=== PATIENT | male | born 1950 | race Caucasian/White ===

== ENCOUNTER 2017-07-27 12:32 | Inpatient (IN) | payer MEDICARE, OTHER ==
[2017-07-27 13:19] LABS: Hematocrit 39 % (42-52); Hemoglobin 13.1 g/dl (14.0-18.0); Mean Corpuscular HGB Conc 34 g/dl (31-36); Mean Corpuscular Hemoglobin 29 pg (27-31); Mean Corpuscular Volume 87 fL (80-94); Mean Platelet Volume 8 um3 (7.4-10.4); Red Blood Count 4.52 10^6/ul (4.0-5.4); Red Cell Distribution Width 15 % (10.5-15); White Blood Count 7.9 10^3/ul (3.5-10.8)
[2017-07-27 13:34] LABS: Albumin 3.6 g/dL (3.2-5.2); BUN/Creatinine Ratio 19.9 (8-20); Calcium 8.7 mg/dL (8.6-10.3); EGFR African American 66.8 (>60); Globulin 2.7 g/dL (2-4); Magnesium 1.7 mg/dL (1.9-2.7); Potassium 4.5 mmol/L (3.5-5.0); Total Bilirubin 0.5 mg/dL (0.2-1.0); Total Protein 6.3 g/dL (6.4-8.9)
--- NOTE | 2017-07-27 14:01 | RAD ---
INDICATION: Shortness of breath. Palpitations. Hypertension. COMPARISON: October 15, [address] TECHNIQUE: Dual energy PA and routine lateral views of the chest were obtained. November 29, 2012 chest radiograph. REPORT: Mild prominence of the interstitial markings with mild increase over the 2013 exam. No alveolar infiltrate, focal pulmonary lesion, pleural effusion, pneumothorax. Cardiomegaly increased over the prior exam. Unremarkable central pulmonary vasculature and mediastinal contours. No suspicious osseous lesions evident. IMPRESSION: 1. Mild prominence of the interstitial markings with progression over the 2013 exam. No acute pulmonary process evident. 2. Cardiomegaly without compelling evidence for pulmonary edema.
[2017-07-27 14:08] LABS: TSH (Thyroid Stimulating Horm) 3.51 mcIU/mL (0.34-5.60)
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
[2017-07-27] MEDS ORDERED: Albuterol HFA INHALER* 8 gm MDI INH PRN (16:45)
[2017-07-27] MEDS ORDERED: Albuterol 2.5 MG/3 ML NEB.SOL* (0.083%) INH PRN (16:45)
[2017-07-27] MEDS ORDERED: Gabapentin CAP(*) 300 MG PO PRN (16:45)
[2017-07-27] MEDS ORDERED: Dextrose 50% Syringe 50 ML* 25 GM/50 ML SYRINGE IV PUSH PRN (16:51)
[2017-07-27] MEDS: Heparin VIAL(*) 5000 UNITS/ML VIAL (FIVE THOUSAND) SUBCUT SCH (22:17)
--- NOTE | 2017-07-27 22:50 | HP ---
CC: Dr. Eulalio Browne* HISTORY AND PHYSICAL: DATE OF ADMISSION: 07/27/2017. CHIEF COMPLAINT: Swelling in his lower extremities. HISTORY OF PRESENT ILLNESS: The patient is a 67-year-old gentleman, who presents to [facility] with a chief complaint of swelling to his lower extremities and near his testicles that has been going on for about a month. It has gotten worse. It gets itchy. He does use a on it. He denies any shortness of breath or chest pain. He has no pain in his legs. He has no palpitations. At the patient's primary care physician's office, he was found to have an atrial fibrillation with a moderate ventricular response. The patient's primary care doctor thought that the patient needed to be admitted to the hospital for this and called the service delivery director for evaluation. PAST MEDICAL HISTORY: Significant for hypertension, BPH, diabetes mellitus, GERD, hyperlipidemia, COPD. CURRENT MEDICATIONS: 1. Flomax 0.4 mg daily. 2. Gabapentin 300 mg twice daily as needed. 3. Lisinopril 40 mg daily. 4. Hydrochlorothiazide 25 mg daily. 5. Aspirin 81 mg daily. 6. Zyrtec 10 mg daily. 7. Diltiazem CD 240 mg daily. 8. Albuterol inhaler 2 puffs every 4 hours as needed. 9. Folic acid 1 tablet daily. 10. Finasteride 5 mg daily. 11. Metformin 500 mg daily. 12. Omeprazole 20 mg daily. 13. Lipitor 10 mg daily. 14. Flonase 2 sprays both nares daily. 15. Albuterol 2.5 mg inhaled 4 times a day. 16. Atenolol 100 mg daily. ALLERGIES: He has no known drug allergies. FAMILY HISTORY: Reviewed and noncontributory. SOCIAL HISTORY: Quit tobacco 3 to 4 years ago, smoked 1 to 2 packs a day for 40 years. No alcohol. No recreational drugs. He has 2 sons. He is a . His son, Lei, is his healthcare proxy. REVIEW OF SYSTEMS: A 14-point review of systems was completed with the patient. All pertinent positives and negatives are in the history of present illness, otherwise it is negative. PHYSICAL EXAMINATION GENERAL: A pleasant gentleman, lying in bed, in no acute distress. VITAL SIGNS: Blood pressure 112/64, heart rate 91 beats per minute, respiratory rate 19 breaths per minute, heart rate 75 beats a minute, temperature is 98 degrees. HEENT: Normocephalic, atraumatic. Pupils equal, round, and reactive to light. Moist mucous membranes. NECK: Supple. No JVD, bruits, palpable thyroid, or lymphadenopathy. CHEST: Clear to auscultation and percussion bilaterally. CARDIOVASCULAR: S1, S2 appreciated. Irregularly irregular rhythm. ABDOMEN: Obese. Positive bowel sounds in all 4 quadrants. Soft, nontender, and nondistended. EXTREMITIES: No cyanosis, clubbing. He has got bilateral edema. NEURO: Alert and oriented x3. Moves all extremities. SKIN: No rashes or abnormalities. DIAGNOSTIC STUDIES/LAB DATA: White count 7.9, hemoglobin 13.1, hematocrit 39, platelets are 228. Sodium is 136, potassium 4.5, chloride 102, CO2 28, BUN 27, creatinine 1.26, his glucose is 129. BNP is 246. Troponin is 0. INR 1.02. Chest x-ray shows mild prominence of interstitial markings, progression of 2013 exam, no active cardiopulmonary process evident. Cardiomegaly without evidence for pulmonary edema. EKG shows atrial fibrillation with a moderate ventricular response. ASSESSMENT AND PLAN: 1. Atrial fibrillation. His rate is controlled. He is asymptomatic. I did discuss with the patient how he would benefit from anticoagulations in the form of Coumadin or Xarelto, Eliquis, or Pradaxa. The patient will consider these and wants to think about it. I will get an echocardiogram on the patient. Cardiology will see the patient tomorrow as per the primary care physician's request. 2. Bilateral edema. Unclear if this is related to his atrial fibrillation and is having cardiac issues. We will order an echocardiogram for evaluation. 3. Hypertension. Well controlled, can continue current regimen. 4. Benign prostatic hyperplasia, stable. Continue Flomax. 5. Diabetes mellitus. Hold current medications, place fingersticks with sliding scale insulin. 6. Gastroesophageal reflux disease, stable. Continue PPI. 7. DVT prophylaxis. Heparin subcu. 8. The patient is a full code. TIME SPENT: Over 75 minutes were spent on this H and P, more than 40 minutes of which was spent in direct [id number] contact with the patient in evaluation , physical exam, counseling and coordination of care. [id number]/[facility] #: [id number] MTDD
[2017-07-27] MEDS: Acetaminophen TAB* 325 MG PO PRN (23:35)
[2017-07-28 01:06] LABS: Urine Bacteria 1+ (Absent); Urine Bilirubin Negative (Negative); Urine Glucose Negative (Negative); Urine Nitrite Positive (Negative)
[2017-07-28] MEDS: Heparin VIAL(*) 5000 UNITS/ML VIAL (FIVE THOUSAND) SUBCUT SCH ×2 (06:07→14:46)
[2017-07-28] MEDS ORDERED: Perflutren Lipid Microsphere* 3 ML VIAL ONE (07:57)
[2017-07-28] MEDS: Diltiazem CD CAP* 240 MG PO SCH (08:59)
[2017-07-28] MEDS: Lisinopril TAB* 10 MG PO SCH (08:59)
[2017-07-28] MEDS: Aspirin EC Low Dose* 81 MG TAB.EC PO SCH (08:59)
[2017-07-28] MEDS: Furosemide IV* 10 MG/ML VIAL (40 MG) IV SCH (08:59)
[2017-07-28] MEDS: Atenolol TAB* 50 MG PO SCH (08:59)
[2017-07-28] MEDS: Finasteride TAB* 5 MG PO SCH (08:59)
[2017-07-28] MEDS: Atorvastatin* 10 MG TAB PO SCH (08:59)
[2017-07-28] MEDS: Omeprazole CAP* 20 MG PO SCH (08:59)
[2017-07-28] MEDS: Hydrochlorothiazide TAB* 25 MG PO SCH (08:59)
[2017-07-28] MEDS: Tamsulosin CAP* 0.4 MG PO SCH (08:59)
[2017-07-28] MEDS: Insulin LISPRO* 1 UNITS UNIT SUBCUT SCH ×3 (09:00→17:58)
[2017-07-28] MEDS: Fluticasone NASAL SPRAY 50MCG* 16 gm SPRAY BTL BOTH NARES SCH (09:03)
[2017-07-28] MEDS: [UNRECOGNIZED DRUG - OTHER] PO SCH (09:06)
--- NOTE | 2017-07-28 19:09 | PN ---
Subjective Date of Service: 07/28/17 Interval History: Patient feels a little bit better with less edema. Objective Active Medications: Acetaminophen (Tylenol Tab*) 650 mg PO Q6H PRN PRN Reason: FEVER/PAIN Last Admin: 07/27/17 23:35 Dose: 650 mg Albuterol (Ventolin 2.5 Mg/3 Ml Neb.Teet[place]*) 2.5 mg INH QID PRN PRN Reason: WHEEZING Albuterol (Ventolin Hfa Inhaler*) 2 puff INH Q4H PRN PRN Reason: SHORTNESS OF BREATH Aspirin (Aspirin Ec Low Dose*) 81 mg PO DAILY [facility] Last Admin: 07/28/17 08:59 Dose: 81 mg Atenolol (Tenormin Tab*) 100 mg PO DAILY [facility] Last Admin: 07/28/17 08:59 Dose: 100 mg Atorvastatin Calcium (Lipitor*) 10 mg PO DAILY [facility] Last Admin: 07/28/17 08:59 Dose: 10 mg Dextrose (D50w Syringe 50 Ml*) 12.5 gm IV PUSH .FOR FS < 60 - SS PRN PRN Reason: FS < 60 Diltiazem HCl (Cardizem Cd Cap*) 240 mg PO DAILY [facility] Last Admin: 07/28/17 08:59 Dose: 240 mg Finasteride (Proscar Tab*) 5 mg PO DAILY [facility] Last Admin: 07/28/17 08:59 Dose: 5 mg Fluticasone Propionate (Flonase Nasal [place] 50mcg*) 2 spray BOTH NARES DAILY [facility] Last Admin: 07/28/17 09:03 Dose: 2 spray Furosemide (Lasix Iv*) 40 mg IV DAILY [facility] Last Admin: 07/28/17 08:59 Dose: 40 mg Gabapentin (Neurontin Cap(*)) 300 mg PO BID PRN PRN Reason: PAIN Heparin Sodium (Porcine) (Heparin Vial(*)) 5,000 units SUBCUT Q8HR [facility] Last Admin: 07/28/17 14:46 Dose: 5,000 units Hydrochlorothiazide (Hydrodiuril Tab*) 25 mg PO DAILY [facility] Last Admin: 07/28/17 08:59 Dose: 25 mg Insulin Human Lispro (Humalog*) 0 units SUBCUT AC [facility] PRN Reason: Protocol Last Admin: 07/28/17 17:58 Dose: 2 units Lisinopril (Prinivil Tab*) 40 mg PO DAILY [facility] Last Admin: 07/28/17 08:59 Dose: 40 mg Nf: Folic Acid- Vitamin B6-Vitamin [ B Complex/Folic Acid 500-5-200 Mcg-Mg-M 1 tab PO DAILY [facility] Last Admin: 07/28/17 09:06 Dose: Not Given Omeprazole (Prilosec Cap*) 20 mg PO DAILY [facility] Last Admin: 07/28/17 08:59 Dose: 20 mg Rivaroxaban (Xarelto(*)) 20 mg PO DAILY [facility] Tamsulosin HCl (Flomax Cap*) 0.4 mg PO DAILY [facility] Last Admin: 07/28/17 08:59 Dose: 0.4 mg Vital Signs 07/27/17 07/28/17 07/28/17 23:50 03:23 04:30 Temperature 97.4 F 97.5 F Pulse Rate 74 69 Respiratory 20 24 22 Rate Blood Pressure 128/66 121/65 (mmHg) O2 Sat by Pulse 93 90 93 Oximetry 07/28/17 07/28/17 07/28/17 07:25 11:39 15:52 Temperature 97.6 F 97.5 F 97.3 F Pulse Rate 37 28 88 Respiratory 20 20 16 Rate Blood Pressure 126/85 125/58 107/81 (mmHg) O2 Sat by Pulse 93 96 93 Oximetry Oxygen Devices in Use Now: None Appearance: WD/WN gentleman sitting up in his chair in NAD Eyes: No Scleral Icterus Ears/Nose/Mouth/Throat: Clear Oropharnyx Neck: No Thyroid Enlargement, Masses Respiratory: Clear to Auscultation Cardiovascular: - - S1S2 marian Abdominal: NL Sounds; No Tenderness; No Distention, No Hepatosplenomegaly Lymphatic: No Cervical Adenopathy Extremities: - - B/L +2 edema LE Skin: No Rash or Ulcers Neurological: Alert and Oriented x 3 Result Diagrams: 07/27/17 13:03 07/27/17 13:03 Additional Lab and Data: Lab Results 07/27/17 07/27/17 07/27/17 Range/Units 13:03 13:03 13:03 WBC (3.5-10.8) 10^3/ul RBC (4.0-5.4) 10^6/ul Hgb (14.0-18.0) g/dl Hct (42-52) % MCV (80-94) fL MCH (27-31) pg MCHC (31-36) g/dl RDW (10.5-15) % Plt Count (150-450) 10^3/ul MPV (7.4-10.4) um3 Neut % (Auto) (38-83) % Lymph % (Auto) (25-47) % Ashley % (Auto) (1-9) % Eos % (Auto) (0-6) % Baso % (Auto) (0-2) % Absolute Neuts (auto) (1.5-7.7) 10^3/ul Absolute Lymphs (auto) (1.0-4.8) 10^3/ul Absolute Monos (auto) (0-0.8) 10^3/ul Absolute Eos (auto) (0-0.6) 10^3/ul Absolute Basos (auto) (0-0.2) 10^3/ul Absolute Nucleated RBC 10^3/ul Nucleated RBC % INR (Anticoag Therapy) 1.02 (0.89-1.11) Sodium 136 (133-145) mmol/L Potassium 4.5 (3.5-5.0) mmol/L Chloride 102 (101-111) mmol/L Carbon Dioxide 28 (22-32) mmol/L Anion Gap 6 (2-11) mmol/L BUN 27 H (6-24) mg/dL Creatinine 1.36 H (0.67-1.17) mg/dL Est GFR ( Amer) 66.8 (>60) Est GFR (Non-Af Amer) 52.0 (>60) BUN/Creatinine Ratio 19.9 (8-20) Glucose 129 H (70-100) mg/dL Calcium 8.7 (8.6-10.3) mg/dL Magnesium 1.7 L (1.9-2.7) mg/dL Total Bilirubin 0.50 (0.2-1.0) mg/dL AST 13 (13-39) U/L ALT 17 (7-52) U/L Alkaline Phosphatase 53 (34-104) U/L Total Creatine Kinase 91 (10-223) U/L CK-MB (CK-2) 3.6 (0.6-6.3) ng/mL Troponin I 0.00 (<0.04) ng/mL B-Natriuretic Peptide 246 H ( - 100) pg/mL Total Protein 6.3 L (6.4-8.9) g/dL Albumin 3.6 (3.2-5.2) g/dL Globulin 2.7 (2-4) g/dL Albumin/Globulin Ratio 1.3 (1-3) TSH 3.51 (0.34-5.60) mcIU/mL 07/27/17 Range/Units 13:03 WBC 7.9 (3.5-10.8) 10^3/ul RBC 4.52 (4.0-5.4) 10^6/ul Hgb 13.1 L (14.0-18.0) g/dl Hct 39 L (42-52) % MCV 87 (80-94) fL MCH 29 (27-31) pg MCHC 34 (31-36) g/dl RDW 15 (10.5-15) % Plt Count 228 (150-450) 10^3/ul MPV 8 (7.4-10.4) um3 Neut % (Auto) 80.6 (38-83) % Lymph % (Auto) 9.5 L (25-47) % Ashley % (Auto) 8.5 (1-9) % Eos % (Auto) 0.6 (0-6) % Baso % (Auto) 0.8 (0-2) % Absolute Neuts (auto) 6.3 (1.5-7.7) 10^3/ul Absolute Lymphs (auto) 0.8 L (1.0-4.8) 10^3/ul Absolute Monos (auto) 0.7 (0-0.8) 10^3/ul Absolute Eos (auto) 0 (0-0.6) 10^3/ul Absolute Basos (auto) 0.1 (0-0.2) 10^3/ul Absolute Nucleated RBC 0 10^3/ul Nucleated RBC % 0 INR (Anticoag Therapy) (0.89-1.11) Sodium (133-145) mmol/L Potassium (3.5-5.0) mmol/L Chloride (101-111) mmol/L Carbon Dioxide (22-32) mmol/L Anion Gap (2-11) mmol/L BUN (6-24) mg/dL Creatinine (0.67-1.17) mg/dL Est GFR ( Amer) (>60) Est GFR (Non-Af Amer) (>60) BUN/Creatinine Ratio (8-20) Glucose (70-100) mg/dL Calcium (8.6-10.3) mg/dL Magnesium (1.9-2.7) mg/dL Total Bilirubin (0.2-1.0) mg/dL AST (13-39) U/L ALT (7-52) U/L Alkaline Phosphatase (34-104) U/L Total Creatine Kinase (10-223) U/L CK-MB (CK-2) (0.6-6.3) ng/mL Troponin I (<0.04) ng/mL B-Natriuretic Peptide ( - 100) pg/mL Total Protein (6.4-8.9) g/dL Albumin (3.2-5.2) g/dL Globulin (2-4) g/dL Albumin/Globulin Ratio (1-3) TSH (0.34-5.60) mcIU/mL Assess/Plan/Problems-Billing Assessment: 67 year old gentleman admitted as per PCP's request for Afib and edema - Patient Problems (1) Atrial fibrillation Current Visit: Yes Status: Acute Code(s): I48.91 - UNSPECIFIED ATRIAL FIBRILLATION SNOMED Code(s): 58442238 Comment: Discussed with cardiology.Started Xarelto 20 mg daily. For possible BRANDIE and cardioversion in AM. Patient's edema likely from the afib as echo is unremarkable. (2) Edema leg Current Visit: Yes Status: Acute Code(s): R60.0 - LOCALIZED EDEMA SNOMED Code(s): 103376841 Comment: Continue diuresis (3) Hypertension Current Visit: Yes Status: Acute Code(s): I10 - ESSENTIAL (PRIMARY) HYPERTENSION SNOMED Code(s): 46067242 Comment: BP adequately controlled. Monitor. (4) BPH (benign prostatic hyperplasia) Current Visit: Yes Status: Acute Code(s): N40.0 - BENIGN PROSTATIC HYPERPLASIA WITHOUT LOWER URINRY TRACT SYMP SNOMED Code(s): 764040124 Comment: Continue flomax and finasteride. Stable. (5) GERD (gastroesophageal reflux disease) Current Visit: Yes Status: Acute Code(s): K21.9 - GASTRO-ESOPHAGEAL REFLUX DISEASE WITHOUT ESOPHAGITIS SNOMED Code(s): 329256681 Comment: No complaints. Continue omeprazole. (6) DVT prophylaxis Current Visit: Yes Status: Acute Code(s): AMF2037 - SNOMED Code(s): 900778488 Comment: Destiny (7) Full code status Current Visit: Yes Status: Acute Code(s): Z78.9 - OTHER SPECIFIED HEALTH STATUS SNOMED Code(s): 873820941
[2017-07-28] MEDS ORDERED: Magnesium Sulfate 2 GM IV* 2 GM/50 ML BAG IVPB ONE (19:37)
[2017-07-28] MEDS: Rivaroxaban TAB(*) 20 MG TAB PO SCH (19:55)
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
[2017-07-29] MEDS: Acetaminophen TAB* 325 MG PO PRN (06:20)
[2017-07-29] MEDS: Insulin LISPRO* 1 UNITS UNIT SUBCUT SCH ×3 (09:28→16:58)
[2017-07-29] MEDS ORDERED: fentaNYL* 50 MCG/ML 2 ML VIAL (100 MCG VIAL) ONE (10:29)
[2017-07-29] MEDS ORDERED: Naloxone* 0.4 MG/ML 1 ML VIAL ONE (10:29)
[2017-07-29] MEDS ORDERED: Lidocaine 2% VISCOUS* 15 ML UDC ONE ×2 (10:29→12:22)
[2017-07-29] MEDS ORDERED: Flumazenil* 0.1 MG/ML 5 ML MDV ONE (10:29)
[2017-07-29] MEDS ORDERED: Midazolam* 1 MG/ML 5 ML VIAL (5 MG) ONE (10:33)
[2017-07-29] MEDS: Diltiazem CD CAP* 240 MG PO SCH (14:35)
[2017-07-29] MEDS: Lisinopril TAB* 10 MG PO SCH (14:35)
--- NOTE | 2017-07-29 14:53 | TEE ---
Patient: SAMUEL MEZA [facility] Rec#: [id number] : 1950 Date: 07/29/2017 Age: 67y Height: 172.72 cm / 68.0 in Weight: 115.21 kg / 253.9 lbs Sex: M BSA: 2.26 Room#: [facility] Type: Inpatient Referring: Amena Araujo MD Performing: Hector Purvis MD Reading: Hector Purvis MD Eap Counselor: Ju Atkinson RDCS Nurse: Jamie Tellez RN CC: Eulalio Browne MD Transesophageal Echocardiogram Indication: A-fib BP: 124/51 HR: 97 Rhythm: A-Fib Findings History: Bilateral lower extremity edema, HTN, former smoker. This is a LIMITED study to evaluate for atrial thrombi. Technical Comments: The study quality is good. Left Ventricle: The left ventricular chamber size is normal. Left ventricular systolic function is at the lower limits of normal. The estimated ejection fraction is 50-55%. The assessment of diastolic function is non-diagnostic. Left Atrium: The left atrium is moderately dilated. No thrombus is visualized within the left atrium. There is no thrombus visualized in the left atrial appendage. Right Ventricle: The right ventricular cavity size is normal. The right ventricular global systolic function is mildly reduced. Right Atrium: The right atrial cavity size is severely dilated. There is no patent foramen ovale visualized. No patent foramen ovale visualized with 2d imaging. Aortic Valve: The aortic valve is trileaflet. There is evidence of aortic sclerosis without stenosis. There is no evidence of aortic regurgitation. There is no evidence of aortic stenosis. Mitral Valve: Mitral valve posterior leaflet calcification is visualized. There is moderate mitral valve prolapse. There is prolapse of the posterior leaflet of the mitral valve. Most likely the P3 segment. There is moderate mitral regurgitation. multiple jets. There is no evidence of mitral stenosis. Tricuspid Valve: The tricuspid valve leaflets are normal. There is mild tricuspid regurgitation. Pulmonic Valve: The pulmonic valve structure is not well visualized. Pericardium: A pericardial effusion is visualized.Small without 2d evidence of hemodynamic compromise. Aorta: There is no dilatation of the ascending aorta. The aortic root is normal in size. Pulmonary Artery: The main pulmonary artery appears normal. BRANDIE Procedures: The procedure was abbreviated due to the patient's medical condition. History and physical as well as labs were reviewed. The patient was in a fasting state. Risks and benefits of the procedure, including alternatives, were discussed and written informed consent was obtained. The patient and/or their health care roofing sales representative expressed understanding of the procedure, risks and benefits. Baseline and continuous monitoring of blood pressure, heart rate, pulse oximetry and heart rhythm was performed throughout the procedure. The appropriate time-out procedure was performed as per [facility] protocol. The patient was placed in the left lateral decubitus position. The patient's posterior pharynx was anesthetized with 20ml of 2% viscous lidocaine. The patient received IV Midazolam with a total dose of 4 mg. The patient received IV Fentanyl with a total dose of 75 mcg. An oral bite block was inserted for protection of oral dentition. The multiplane transesophageal echocardiogram probe was inserted through the posterior oropharynx and advanced into the esophagus without difficulty. Multiple 2D images were obtained of the heart and its related structures. Color flow Doppler was used for evaluation. Procedure was aborted due to The patient was unable to tolerate the probe without additional sedation. Due to the patient's history of nocturnal hypoxemia, additional sedation was contraindicated. The exam was abbreviated due to the above concerns. Spectral Doppler was also used. At the conclusion of the procedure the probe was removed with continuous suction without complications. Conclusions Left ventricular systolic function is at the lower limits of normal. The estimated ejection fraction is 50-55%. There is no thrombus visualized in the left atrial appendage. The right ventricular global systolic function is mildly reduced. The right atrial cavity size is severely dilated. There is moderate mitral valve prolapse. There is prolapse of the posterior leaflet of the mitral valve. Most likely the P3 segment. There is moderate mitral regurgitation with multiple jets. There is mild tricuspid regurgitation. A pericardial effusion is visualized. (Small without 2d evidence of hemodynamic compromise). Multiple 2D images were obtained of the heart and its related structures. Color flow Doppler was used for evaluation. The patient was unable to tolerate the probe without additional sedation. Due to the patient's history of nocturnal hypoxemia, additional sedation was contraindicated. The exam was abbreviated due to the above concerns. Measurements Name Value Normal Range Aortic Annulus 2.5 cm (1.4 - 2.6) Ao root diameter (2D) 3.4 cm (2.1 - 3.5) Ascending Ao 3 cm (2.1 - 3.4)
[2017-07-29] MEDS: Atenolol TAB* 50 MG PO SCH (15:29)
[2017-07-29 16:09] LABS: Hematocrit 40 % (42-52); Hemoglobin 13.1 g/dl (14.0-18.0); Mean Corpuscular HGB Conc 32 g/dl (31-36); Mean Corpuscular Hemoglobin 28 pg (27-31); Mean Corpuscular Volume 88 fL (80-94); Mean Platelet Volume 8 um3 (7.4-10.4); Red Blood Count 4.62 10^6/ul (4.0-5.4); Red Cell Distribution Width 15 % (10.5-15); White Blood Count 4.9 10^3/ul (3.5-10.8)
[2017-07-29 16:22] LABS: BUN/Creatinine Ratio 19.6 (8-20); Calcium 8.6 mg/dL (8.6-10.3); EGFR African American 65.7 (>60); EGFR Non-African American 51.1 (>60); Magnesium 2.3 mg/dL (1.9-2.7); Potassium 4.8 mmol/L (3.5-5.0)
[2017-07-29] MEDS: [UNRECOGNIZED DRUG - OTHER] PO SCH (16:37)
[2017-07-29] MEDS: Finasteride TAB* 5 MG PO SCH (16:50)
[2017-07-29] MEDS: Aspirin EC Low Dose* 81 MG TAB.EC PO SCH (16:50)
[2017-07-29] MEDS: Tamsulosin CAP* 0.4 MG PO SCH (16:50)
[2017-07-29] MEDS: Hydrochlorothiazide TAB* 25 MG PO SCH (16:51)
[2017-07-29] MEDS: Fluticasone NASAL SPRAY 50MCG* 16 gm SPRAY BTL BOTH NARES SCH (16:51)
[2017-07-29] MEDS: Omeprazole CAP* 20 MG PO SCH (16:51)
[2017-07-29] MEDS: Rivaroxaban TAB(*) 20 MG TAB PO SCH (16:51)
[2017-07-29] MEDS: Atorvastatin* 10 MG TAB PO SCH (16:51)
[2017-07-29] MEDS: Furosemide IV* 10 MG/ML VIAL (40 MG) IV SCH (16:52)
--- NOTE | 2017-07-29 18:08 | PN ---
Subjective Date of Service: 07/29/17 Interval History: patient feeling a bit weak today. Otherwise no complaints. Objective Active Medications: Acetaminophen (Tylenol Tab*) 650 mg PO Q6H PRN PRN Reason: FEVER/PAIN Last Admin: 07/29/17 06:20 Dose: 650 mg Albuterol (Ventolin 2.5 Mg/3 Ml Neb.Teetee*) 2.5 mg INH QID PRN PRN Reason: WHEEZING Albuterol (Ventolin Hfa Inhaler*) 2 puff INH Q4H PRN PRN Reason: SHORTNESS OF BREATH Aspirin (Aspirin Ec Low Dose*) 81 mg PO DAILY [facility] Last Admin: 07/29/17 16:50 Dose: 81 mg Atenolol (Tenormin Tab*) 100 mg PO DAILY [facility] Last Admin: 07/29/17 15:29 Dose: Not Given Atorvastatin Calcium (Lipitor*) 10 mg PO DAILY [facility] Last Admin: 07/29/17 16:51 Dose: 10 mg Dextrose (D50w Syringe 50 Ml*) 12.5 gm IV PUSH .FOR FS < 60 - SS PRN PRN Reason: FS < 60 Finasteride (Proscar Tab*) 5 mg PO DAILY [facility] Last Admin: 07/29/17 16:50 Dose: 5 mg Fluticasone Propionate (Flonase Nasal [place] 50mcg*) 2 spray BOTH NARES DAILY [facility] Last Admin: 07/29/17 16:51 Dose: 2 spray Furosemide (Lasix Iv*) 40 mg IV DAILY [facility] Last Admin: 07/29/17 16:52 Dose: 40 mg Gabapentin (Neurontin Cap(*)) 300 mg PO BID PRN PRN Reason: PAIN Hydrochlorothiazide (Hydrodiuril Tab*) 25 mg PO DAILY [facility] Last Admin: 07/29/17 16:51 Dose: 25 mg Insulin Human Lispro (Humalog*) 0 units SUBCUT AC [facility] PRN Reason: Protocol Last Admin: 07/29/17 16:58 Dose: Not Given Nf: Folic Acid- Vitamin B6-Vitamin [ B Complex/Folic Acid 500-5-200 Mcg-Mg-M 1 tab PO DAILY [facility] Last Admin: 07/29/17 16:37 Dose: Not Given Omeprazole (Prilosec Cap*) 20 mg PO DAILY [facility] Last Admin: 07/29/17 16:51 Dose: 20 mg Rivaroxaban (Xarelto (*)) 20 mg PO DAILY [facility] Last Admin: 07/29/17 16:51 Dose: 20 mg Tamsulosin HCl (Flomax Cap*) 0.4 mg PO DAILY [facility] Last Admin: 07/29/17 16:50 Dose: 0.4 mg Vital Signs 07/28/17 07/28/17 07/29/17 19:40 23:25 03:19 Temperature 97.7 F 98.2 F Pulse Rate 95 75 72 Respiratory 16 24 20 Rate Blood Pressure 119/75 115/61 124/51 (mmHg) O2 Sat by Pulse 91 94 88 Oximetry 07/29/17 07/29/17 07/29/17 07:49 14:33 14:48 Temperature 97.3 F 97.6 F Pulse Rate 90 57 61 Respiratory 20 18 18 Rate Blood Pressure 115/70 118/61 116/67 (mmHg) O2 Sat by Pulse 95 92 95 Oximetry Oxygen Devices in Use Now: None Appearance: Overweight gentleman sitting up in bed in NAD Eyes: No Scleral Icterus Ears/Nose/Mouth/Throat: Clear Oropharnyx Neck: No Thyroid Enlargement, Masses Respiratory: Clear to Auscultation Cardiovascular: - - S1S2 Abdominal: NL Sounds; No Tenderness; No Distention, No Hepatosplenomegaly, - - Obese Lymphatic: No Cervical Adenopathy Extremities: No Clubbing, Cyanosis Skin: No Rash or Ulcers Neurological: Alert and Oriented x 3 Result Diagrams: 07/29/17 15:55 07/29/17 15:55 Additional Lab and Data: Lab Results 07/27/17 07/27/17 07/27/17 Range/Units 13:03 13:03 13:03 WBC (3.5-10.8) 10^3/ul RBC (4.0-5.4) 10^6/ul Hgb (14.0-18.0) g/dl Hct (42-52) % MCV (80-94) fL MCH (27-31) pg MCHC (31-36) g/dl RDW (10.5-15) % Plt Count (150-450) 10^3/ul MPV (7.4-10.4) um3 Neut % (Auto) (38-83) % Lymph % (Auto) (25-47) % [place] % (Auto) (1-9) % Eos % (Auto) (0-6) % Baso % (Auto) (0-2) % Absolute Neuts (auto) (1.5-7.7) 10^3/ul Absolute Lymphs (auto) (1.0-4.8) 10^3/ul Absolute Monos (auto) (0-0.8) 10^3/ul Absolute Eos (auto) (0-0.6) 10^3/ul Absolute Basos (auto) (0-0.2) 10^3/ul Absolute Nucleated RBC 10^3/ul Nucleated RBC % INR (Anticoag Therapy) 1.02 (0.89-1.11) Sodium 136 (133-145) mmol/L Potassium 4.5 (3.5-5.0) mmol/L Chloride 102 (101-111) mmol/L Carbon Dioxide 28 (22-32) mmol/L Anion Gap 6 (2-11) mmol/L BUN 27 H (6-24) mg/dL Creatinine 1.36 H (0.67-1.17) mg/dL Est GFR ( Amer) 66.8 (>60) Est GFR (Non-Af Amer) 52.0 (>60) BUN/Creatinine Ratio 19.9 (8-20) Glucose 129 H (70-100) mg/dL Calcium 8.7 (8.6-10.3) mg/dL Magnesium 1.7 L (1.9-2.7) mg/dL Total Bilirubin 0.50 (0.2-1.0) mg/dL AST 13 (13-39) U/L ALT 17 (7-52) U/L Alkaline Phosphatase 53 (34-104) U/L Total Creatine Kinase 91 (10-223) U/L CK-MB (CK-2) 3.6 (0.6-6.3) ng/mL Troponin I 0.00 (<0.04) ng/mL B-Natriuretic Peptide 246 H ( - 100) pg/mL Total Protein 6.3 L (6.4-8.9) g/dL Albumin 3.6 (3.2-5.2) g/dL Globulin 2.7 (2-4) g/dL Albumin/Globulin Ratio 1.3 (1-3) TSH 3.51 (0.34-5.60) mcIU/mL 07/27/17 Range/Units 13:03 WBC 7.9 (3.5-10.8) 10^3/ul RBC 4.52 (4.0-5.4) 10^6/ul Hgb 13.1 L (14.0-18.0) g/dl Hct 39 L (42-52) % MCV 87 (80-94) fL MCH 29 (27-31) pg MCHC 34 (31-36) g/dl RDW 15 (10.5-15) % Plt Count 228 (150-450) 10^3/ul MPV 8 (7.4-10.4) um3 Neut % (Auto) 80.6 (38-83) % Lymph % (Auto) 9.5 L (25-47) % [place] % (Auto) 8.5 (1-9) % Eos % (Auto) 0.6 (0-6) % Baso % (Auto) 0.8 (0-2) % Absolute Neuts (auto) 6.3 (1.5-7.7) 10^3/ul Absolute Lymphs (auto) 0.8 L (1.0-4.8) 10^3/ul Absolute Monos (auto) 0.7 (0-0.8) 10^3/ul Absolute Eos (auto) 0 (0-0.6) 10^3/ul Absolute Basos (auto) 0.1 (0-0.2) 10^3/ul Absolute Nucleated RBC 0 10^3/ul Nucleated RBC % 0 INR (Anticoag Therapy) (0.89-1.11) Sodium (133-145) mmol/L Potassium (3.5-5.0) mmol/L Chloride (101-111) mmol/L Carbon Dioxide (22-32) mmol/L Anion Gap (2-11) mmol/L BUN (6-24) mg/dL Creatinine (0.67-1.17) mg/dL Est GFR ( Amer) (>60) Est GFR (Non-Af Amer) (>60) BUN/Creatinine Ratio (8-20) Glucose (70-100) mg/dL Calcium (8.6-10.3) mg/dL Magnesium (1.9-2.7) mg/dL Total Bilirubin (0.2-1.0) mg/dL AST (13-39) U/L ALT (7-52) U/L Alkaline Phosphatase (34-104) U/L Total Creatine Kinase (10-223) U/L CK-MB (CK-2) (0.6-6.3) ng/mL Troponin I (<0.04) ng/mL B-Natriuretic Peptide ( - 100) pg/mL Total Protein (6.4-8.9) g/dL Albumin (3.2-5.2) g/dL Globulin (2-4) g/dL Albumin/Globulin Ratio (1-3) TSH (0.34-5.60) mcIU/mL Assess/Plan/Problems-Billing Assessment: 67 year old gentleman admitted as per PCP's request for Afib and edema - Patient Problems (1) Atrial fibrillation Current Visit: Yes Status: Acute Code(s): I48.91 - UNSPECIFIED ATRIAL FIBRILLATION SNOMED Code(s): 83935329 Comment: Cardioverted. Got very bradycardic with heart rate in low 30's because patient has been on high dose negative chronotrops. - cardizem and atenolol. Will cut doses in half to cardizem cd 120 and atenolol 50 and monitor. May need them discontinued all together. (2) Edema leg Current Visit: Yes Status: Acute Code(s): R60.0 - LOCALIZED EDEMA SNOMED Code(s): 528349857 Comment: Continue diuresis. Improving. (3) Hypoxia Current Visit: Yes Status: Acute Code(s): R09.02 - HYPOXEMIA SNOMED Code(s ): 957903556 Comment: Patient has desated numerous times especially when asleep. Almost certainly has sleep apnea. Overnight pulse oximetry consistent with this. Will need nighttime O2 on discharge and sleep study as outpatient. Advised patient of this. (4) Hypertension Current Visit: Yes Status: Acute Code(s): I10 - ESSENTIAL (PRIMARY) HYPERTENSION SNOMED Code(s): 98078700 Comment: BP adequately controlled. Monitor. (5) BPH (benign prostatic hyperplasia) Current Visit: Yes Status: Acute Code(s): N40.0 - BENIGN PROSTATIC HYPERPLASIA WITHOUT LOWER URINRY TRACT SYMP SNOMED Code(s): 472723405 Comment: Continue flomax and finasteride. Stable. (6) GERD (gastroesophageal reflux disease) Current Visit: Yes Status: Acute Code(s): K21.9 - GASTRO-ESOPHAGEAL REFLUX DISEASE WITHOUT ESOPHAGITIS SNOMED Code(s): 958107667 Comment: No complaints. Continue omeprazole. (7) DVT prophylaxis Current Visit: Yes Status: Acute Code(s): UQE0900 - SNOMED Code(s): 301304072 Comment: Destiny (8) Full code status Current Visit: Yes Status: Acute Code(s): Z78.9 - OTHER SPECIFIED HEALTH STATUS SNOMED Code(s): 477715184
--- NOTE | 2017-07-30 00:19 | CARD ---
CC: Dr. Amena Araujo CARDIOLOGY PROCEDURE NOTE: DATE OF PROCEDURE: PATIENT OF: Dr. aCsiano and [facility]. HISTORY: This is a 67-year-old gentleman admitted with volume overload and AFib. He has been diures ed and is now referred for BRANDIE-guided cardioversion. He was premedicated with Xarelto. He received 4 mg of Versed and 75 mcg of fentanyl for BRANDIE, which revealed moderate MR of multiple jets and prol apse of the posterior leaflet. He also had RV dilatation, hypokinesis, and marked RA enlargement. The test was abbreviated due to gagging and his history of overnight hypoxemia. He did have an over night oximetry last night which revealed desaturation 87% at that time. An additional 2 mg of Versed was given, a single synchronized biphasic shock of 100 joules was applied with successful conversio n to sinus rhythm. The patient was given Romazicon 0.1 mg x2 doses post conversion to reverse the e ffects of the Romazicon given his predisposition for hypoxemia. IMPRESSION: Successful conversion to sinus rhythm. As discussed with the patient before procedure, it was unclear whether he will maintain sinus rhythm in light of his obesity, possible sleep apnea, alcohol use, and MR and right atrial enlargement. We will continue with anticoagulation. Continue gentle diuresis. Maintain potassium over of 4. He is to follow up with Dr. Araujo as an outpatient. Consider outpatient sleep study for sleep lens grinder rough ea. He was advised to refrain from alcohol. [id number]/[facility] #: [id number]
--- NOTE | 2017-07-30 07:49 | PN ---
Subjective Date of Service: 07/30/17 Interval History: Pt is feeling better than when he came into the hospital. He denies any SOB at this time but is concerned about still needing O2. He notes that the LE edema is still present but much improved. He denies any pain. Objective Active Medications: Acetaminophen (Tylenol Tab*) 650 mg PO Q6H PRN PRN Reason: FEVER/PAIN Last Admin: 07/29/17 06:20 Dose: 650 mg Albuterol (Ventolin 2.5 Mg/3 Ml Neb.Teetee*) 2.5 mg INH QID PRN PRN Reason: WHEEZING Albuterol (Ventolin Hfa Inhaler*) 2 puff INH Q4H PRN PRN Reason: SHORTNESS OF BREATH Aspirin (Aspirin Ec Low Dose*) 81 mg PO DAILY [facility] Last Admin: 07/29/17 16:50 Dose: 81 mg Atenolol (Tenormin Tab*) 50 mg PO DAILY [facility] Atorvastatin Calcium (Lipitor*) 10 mg PO DAILY [facility] Last Admin: 07/29/17 16:51 Dose: 10 mg Dextrose (D50w Syringe 50 Ml*) 12.5 gm IV PUSH .FOR FS < 60 - SS PRN PRN Reason: FS < 60 Finasteride (Proscar Tab*) 5 mg PO DAILY [facility] Last Admin: 07/29/17 16:50 Dose: 5 mg Fluticasone Propionate (Flonase Nasal [place] 50mcg*) 2 spray BOTH NARES DAILY [facility] Last Admin: 07/29/17 16:51 Dose: 2 spray Furosemide (Lasix Iv*) 40 mg IV DAILY [facility] Last Admin: 07/29/17 16:52 Dose: 40 mg Gabapentin (Neurontin Cap(*)) 300 mg PO BID PRN PRN Reason: PAIN Hydrochlorothiazide (Hydrodiuril Tab*) 25 mg PO DAILY [facility] Last Admin: 07/29/17 16:51 Dose: 25 mg Insulin Human Lispro (Humalog*) 0 units SUBCUT AC [facility] PRN Reason: Protocol Last Admin: 07/29/17 16:58 Dose: Not Given Nf: Folic Acid- Vitamin B6-Vitamin [ B Complex/Folic Acid 500-5-200 Mcg-Mg-M 1 tab PO DAILY [facility] Last Admin: 07/29/17 16:37 Dose: Not Given Omeprazole (Prilosec Cap*) 20 mg PO DAILY [facility] Last Admin: 07/29/17 16:51 Dose: 20 mg Rivaroxaban (Xarelto (*)) 20 mg PO DAILY [facility] Last Admin: 07/29/17 16:51 Dose: 20 mg Tamsulosin HCl (Flomax Cap*) 0.4 mg PO DAILY [facility] Last Admin: 07/29/17 16:50 Dose: 0.4 mg Vital Signs 07/29/17 07/29/17 07/29/17 07:49 14:33 14:48 Temperature 97.3 F 97.6 F Pulse Rate 90 57 61 Respiratory 20 18 18 Rate Blood Pressure 115/70 118/61 116/67 (mmHg) O2 Sat by Pulse 95 92 95 Oximetry 07/29/17 07/29/17 07/29/17 18:20 19:38 20:00 Temperature 97.2 F Pulse Rate 66 66 Respiratory 20 19 20 Rate Blood Pressure 115/67 133/60 (mmHg) O2 Sat by Pulse 96 97 Oximetry 07/29/17 07/30/17 07/30/17 23:27 00:00 04:11 Temperature 97.6 F 97.9 F Pulse Rate 71 79 Respiratory 16 16 Rate Blood Pressure 121/47 148/66 (mmHg) O2 Sat by Pulse 97 97 94 Oximetry 07/30/17 07:32 Temperature Pulse Rate Respiratory Rate Blood Pressure (mmHg) O2 Sat by Pulse 94 Oximetry Oxygen Devices in Use Now: Nasal Cannula - 4L-94-95% Appearance: Middle aged male sitting up in bed, NAD Eyes: No Scleral Icterus Ears/Nose/Mouth/Throat: Mucous Membranes Moist Respiratory: Symmetrical Chest Expansion and Respiratory Effort, - - diminished breath sounds in all lung keene, few fine crackles at the bilateral bases Cardiovascular: RRR, - - 3+ B/L LE edema Abdominal: NL Sounds; No Tenderness; No Distention Extremities: No Clubbing, Cyanosis Skin: No Rash or Ulcers, No Nodules or Sclerosis, - - Lower legs mildly erythematous Neurological: Alert and Oriented x 3 Result Diagrams: 07/29/17 15:55 07/29/17 15:55 Additional Lab and Data: Lab Results 07/27/17 07/27/17 07/27/17 Range/Units 13:03 13:03 13:03 WBC (3.5-10.8) 10^3/ul RBC (4.0-5.4) 10^6/ul Hgb (14.0-18.0) g/dl Hct (42-52) % MCV (80-94) fL MCH (27-31) pg MCHC (31-36) g/dl RDW (10.5-15) % Plt Count (150-450) 10^3/ul MPV (7.4-10.4) um3 Neut % (Auto) (38-83) % Lymph % (Auto) (25-47) % [place] % (Auto) (1-9) % Eos % (Auto) (0-6) % Baso % (Auto) (0-2) % Absolute Neuts (auto) (1.5-7.7) 10^3/ul Absolute Lymphs (auto) (1.0-4.8) 10^3/ul Absolute Monos (auto) (0-0.8) 10^3/ul Absolute Eos (auto) (0-0.6) 10^3/ul Absolute Basos (auto) (0-0.2) 10^3/ul Absolute Nucleated RBC 10^3/ul Nucleated RBC % INR (Anticoag Therapy) 1.02 (0.89-1.11) Sodium 136 (133-145) mmol/L Potassium 4.5 (3.5-5.0) mmol/L Chloride 102 (101-111) mmol/L Carbon Dioxide 28 (22-32) mmol/L Anion Gap 6 (2-11) mmol/L BUN 27 H (6-24) mg/dL Creatinine 1.36 H (0.67-1.17) mg/dL Est GFR ( Amer) 66.8 (>60) Est GFR (Non-Af Amer) 52.0 (>60) BUN/Creatinine Ratio 19.9 (8-20) Glucose 129 H (70-100) mg/dL Calcium 8.7 (8.6-10.3) mg/dL Magnesium 1.7 L (1.9-2.7) mg/dL Total Bilirubin 0.50 (0.2-1.0) mg/dL AST 13 (13-39) U/L ALT 17 (7-52) U/L Alkaline Phosphatase 53 (34-104) U/L Total Creatine Kinase 91 (10-223) U/L CK-MB (CK-2) 3.6 (0.6-6.3) ng/mL Troponin I 0.00 (<0.04) ng/mL B-Natriuretic Peptide 246 H ( - 100) pg/mL Total Protein 6.3 L (6.4-8.9) g/dL Albumin 3.6 (3.2-5.2) g/dL Globulin 2.7 (2-4) g/dL Albumin/Globulin Ratio 1.3 (1-3) TSH 3.51 (0.34-5.60) mcIU/mL 07/27/17 Range/Units 13:03 WBC 7.9 (3.5-10.8) 10^3/ul RBC 4.52 (4.0-5.4) 10^6/ul Hgb 13.1 L (14.0-18.0) g/dl Hct 39 L (42-52) % MCV 87 (80-94) fL MCH 29 (27-31) pg MCHC 34 (31-36) g/dl RDW 15 (10.5-15) % Plt Count 228 (150-450) 10^3/ul MPV 8 (7.4-10.4) um3 Neut % (Auto) 80.6 (38-83) % Lymph % (Auto) 9.5 L (25-47) % [place] % (Auto) 8.5 (1-9) % Eos % (Auto) 0.6 (0-6) % Baso % (Auto) 0.8 (0-2) % Absolute Neuts (auto) 6.3 (1.5-7.7) 10^3/ul Absolute Lymphs (auto) 0.8 L (1.0-4.8) 10^3/ul Absolute Monos (auto) 0.7 (0-0.8) 10^3/ul Absolute Eos (auto) 0 (0-0.6) 10^3/ul Absolute Basos (auto) 0.1 (0-0.2) 10^3/ul Absolute Nucleated RBC 0 10^3/ul Nucleated RBC % 0 INR (Anticoag Therapy) (0.89-1.11) Sodium (133-145) mmol/L Potassium (3.5-5.0) mmol/L Chloride (101-111) mmol/L Carbon Dioxide (22-32) mmol/L Anion Gap (2-11) mmol/L BUN (6-24) mg/dL Creatinine (0.67-1.17) mg/dL Est GFR ( Amer) (>60) Est GFR (Non-Af Amer) (>60) BUN/Creatinine Ratio (8-20) Glucose (70-100) mg/dL Calcium (8.6-10.3) mg/dL Magnesium (1.9-2.7) mg/dL Total Bilirubin (0.2-1.0) mg/dL AST (13-39) U/L ALT (7-52) U/L Alkaline Phosphatase (34-104) U/L Total Creatine Kinase (10-223) U/L CK-MB (CK-2) (0.6-6.3) ng/mL Troponin I (<0.04) ng/mL B-Natriuretic Peptide ( - 100) pg/mL Total Protein (6.4-8.9) g/dL Albumin (3.2-5.2) g/dL Globulin (2-4) g/dL Albumin/Globulin Ratio (1-3) TSH (0.34-5.60) mcIU/mL Assess/Plan/Problems-Billing Mr Torres is a 67 yo M with a h/o HTN, HLD, obesity, past h/o smoking who presented to his PCPs office for LE edema and was found to be in atrial fibrillation and sent to the ER for evaluation. - Patient Problems (1) UTI (urinary tract infection) Current Visit: Yes Status: Acute Comment: The patient's urine has grown citrobacter youngae. He states he has had mild burning with urination and a past h/o UTIs. Will start bactrim DS 1 tab BID and await the sensitivities. (2) Hypoxia Current Visit: Yes Status: Acute Code(s): R09.02 - HYPOXEMIA SNOMED Code(s ): 816059116 Comment: The patient likely has ROMERO and needs a formal sleep study. For now will plan on O2 with sleep however he has also had periods of desaturation while awake and being active. ? mild pulmonary edema contributing. Will continue to diurese the patient and monitor his O2 saturation. His past h/o smoking is likely contributing to his hypoxia while awake. I have also recommended to the patient that he have PFTs as an outpatient to [facility] for COPD. Will repeat the nocturnal oximetry study on 2L tonight to see if he needs more than 2L. (3) Atrial fibrillation Current Visit: Yes Status: Acute Code(s): I48.91 - UNSPECIFIED ATRIAL FIBRILLATION SNOMED Code(s): 15750522 Comment: The patient has remained in NSR with a rate in the 70-80's. Continue atenolol 50mg daily (diltiazem has been discontinued). Continue xarelto. (4) Edema leg Current Visit: Yes Status: Acute Code(s): R60.0 - LOCALIZED EDEMA SNOMED Code(s): 064666331 Comment: The patient has had dramatic improvement in his LE edema but still has a significant amount of edema present. Will continue IV diuresis. (5) Hypertension Current Visit: Yes Status: Acute Code(s): I10 - ESSENTIAL (PRIMARY) HYPERTENSION SNOMED Code(s): 77380573 Comment: BP has been under good control without the diltiazem. Will continue to monitor to ensure his BP remains controlled. (6) BPH (benign prostatic hyperplasia) Current Visit: Yes Status: Acute Code(s): N40.0 - BENIGN PROSTATIC HYPERPLASIA WITHOUT LOWER URINRY TRACT SYMP SNOMED Code(s): 964217053 Comment: Continue flomax and finasteride. Stable. (7) GERD (gastroesophageal reflux disease) Current Visit: Yes Status: Acute Code(s): K21.9 - GASTRO-ESOPHAGEAL REFLUX DISEASE WITHOUT ESOPHAGITIS SNOMED Code(s): 658957694 Comment: Continue omeprazole. (8) DVT prophylaxis Current Visit: Yes Status: Acute Code(s): CMK7286 - SNOMED Code(s): 016818144 Comment: Xarelto (9) Full code status Current Visit: Yes Status: Acute Code(s): Z78.9 - OTHER SPECIFIED HEALTH STATUS SNOMED Code(s): 840521178
[2017-07-30] MEDS ORDERED: Furosemide IV* 10 MG/ML VIAL (40 MG) ONE (08:00)
[2017-07-30] MEDS: Atenolol TAB* 50 MG PO SCH (08:03)
[2017-07-30] MEDS: Acetaminophen TAB* 325 MG PO PRN ×2 (08:03→18:01)
[2017-07-30] MEDS: Furosemide IV* 10 MG/ML VIAL (40 MG) IV SCH ×2 (08:03→14:55)
[2017-07-30] MEDS: Sulfamethox/Trimethoprim DS 800/160* TAB PO SCH ×2 (08:03→20:54)
[2017-07-30] MEDS: Rivaroxaban TAB(*) 20 MG TAB PO SCH (08:04)
[2017-07-30] MEDS: Hydrochlorothiazide TAB* 25 MG PO SCH (08:04)
[2017-07-30] MEDS: [UNRECOGNIZED DRUG - OTHER] PO SCH (08:04)
[2017-07-30] MEDS: Tamsulosin CAP* 0.4 MG PO SCH (08:04)
[2017-07-30] MEDS: Finasteride TAB* 5 MG PO SCH (08:04)
[2017-07-30] MEDS: Aspirin EC Low Dose* 81 MG TAB.EC PO SCH (08:04)
[2017-07-30] MEDS: Atorvastatin* 10 MG TAB PO SCH (08:04)
[2017-07-30] MEDS: Omeprazole CAP* 20 MG PO SCH (08:04)
[2017-07-30] MEDS: Fluticasone NASAL SPRAY 50MCG* 16 gm SPRAY BTL BOTH NARES SCH (08:07)
[2017-07-30] MEDS: Insulin LISPRO* 1 UNITS UNIT SUBCUT SCH ×3 (08:18→17:42)
[2017-07-31] MEDS: Acetaminophen TAB* 325 MG PO PRN ×2 (03:00→11:34)
[2017-07-31 07:05] LABS: BUN/Creatinine Ratio 20.5 (8-20); Calcium 8.8 mg/dL (8.6-10.3); EGFR African American 61.6 (>60); EGFR Non-African American 47.9 (>60); Magnesium 2.1 mg/dL (1.9-2.7); Potassium 4.5 mmol/L (3.5-5.0)
[2017-07-31] MEDS: Insulin LISPRO* 1 UNITS UNIT SUBCUT SCH ×2 (07:23→11:31)
[2017-07-31 07:31] LABS: Ferritin 57.7 ng/mL (24-336)
[2017-07-31] MEDS: [UNRECOGNIZED DRUG - OTHER] PO SCH (08:50)
[2017-07-31] MEDS: Fluticasone NASAL SPRAY 50MCG* 16 gm SPRAY BTL BOTH NARES SCH (08:57)
[2017-07-31] MEDS: Omeprazole CAP* 20 MG PO SCH (08:58)
[2017-07-31] MEDS: Rivaroxaban TAB(*) 20 MG TAB PO SCH (08:58)
[2017-07-31] MEDS: Finasteride TAB* 5 MG PO SCH (08:58)
[2017-07-31] MEDS: Tamsulosin CAP* 0.4 MG PO SCH (08:58)
[2017-07-31] MEDS: Atorvastatin* 10 MG TAB PO SCH (08:58)
[2017-07-31] MEDS: Hydrochlorothiazide TAB* 25 MG PO SCH (08:58)
[2017-07-31] MEDS: Atenolol TAB* 50 MG PO SCH (08:58)
[2017-07-31] MEDS: Aspirin EC Low Dose* 81 MG TAB.EC PO SCH (08:59)
[2017-07-31] MEDS: Sulfamethox/Trimethoprim DS 800/160* TAB PO SCH (08:59)
[2017-07-31] MEDS: Furosemide IV* 10 MG/ML VIAL (40 MG) IV SCH (08:59)
[2017-07-31 09:48] LABS: Globulin 3.1 g/dL (2-4); Total Bilirubin 0.5 mg/dL (0.2-1.0); Total Protein 7.1 g/dL (6.4-8.9)
[2017-07-31 11:28] VITALS: BP 130/71
--- NOTE | 2017-07-31 12:20 | PN ---
Subjective Date of Service: 07/31/17 Interval History: Pt is feeling well. He denies any SOB. He states he did feel slightly lightheaded when up and walking without O2. He states his LE edema is markedly better. He is anxious to go home. Objective Active Medications: Acetaminophen (Tylenol Tab*) 650 mg PO Q6H PRN PRN Reason: FEVER/PAIN Last Admin: 07/31/17 11:34 Dose: 650 mg Albuterol (Ventolin 2.5 Mg/3 Ml Neb.Teetee*) 2.5 mg INH QID PRN PRN Reason: WHEEZING Albuterol (Ventolin Hfa Inhaler*) 2 puff INH Q4H PRN PRN Reason: SHORTNESS OF BREATH Aspirin (Aspirin Ec Low Dose*) 81 mg PO DAILY [facility] Last Admin: 07/31/17 08:59 Dose: 81 mg Atenolol (Tenormin Tab*) 50 mg PO DAILY [facility] Last Admin: 07/31/17 08:58 Dose: 50 mg Atorvastatin Calcium (Lipitor*) 10 mg PO DAILY [facility] Last Admin: 07/31/17 08:58 Dose: 10 mg Dextrose (D50w Syringe 50 Ml*) 12.5 gm IV PUSH .FOR FS < 60 - SS PRN PRN Reason: FS < 60 Finasteride (Proscar Tab*) 5 mg PO DAILY [facility] Last Admin: 07/31/17 08:58 Dose: 5 mg Fluticasone Propionate (Flonase Nasal [place] 50mcg*) 2 spray BOTH NARES DAILY [facility] Last Admin: 07/31/17 08:57 Dose: 2 spray Furosemide (Lasix Iv*) 40 mg IV 0900,1500 [facility] Last Admin: 07/31/17 08:59 Dose: 40 mg Gabapentin (Neurontin Cap(*)) 300 mg PO BID PRN PRN Reason: PAIN Last Admin: 07/30/17 08:03 Dose: 300 mg Hydrochlorothiazide (Hydrodiuril Tab*) 25 mg PO DAILY [facility] Last Admin: 07/31/17 08:58 Dose: 25 mg Insulin Human Lispro (Humalog*) 0 units SUBCUT AC [facility] PRN Reason: Protocol Last Admin: 07/31/17 11:31 Dose: 3 units Nf: Folic Acid- Vitamin B6-Vitamin [ B Complex/Folic Acid 500-5-200 Mcg-Mg-M 1 tab PO DAILY [facility] Last Admin: 07/31/17 08:50 Dose: Not Given Omeprazole (Prilosec Cap*) 20 mg PO DAILY [facility] Last Admin: 07/31/17 08:58 Dose: 20 mg Rivaroxaban (Xarelto (*)) 20 mg PO DAILY [facility] Last Admin: 07/31/17 08:58 Dose: 20 mg Tamsulosin HCl (Flomax Cap*) 0.4 mg PO DAILY [facility] Last Admin: 07/31/17 08:58 Dose: 0.4 mg Trimethoprim/Sulfamethoxazole (Bactrim Ds 800/160 Tab*) 1 tab PO BID [facility] Last Admin: 07/31/17 08:59 Dose: 1 tab Vital Signs 07/30/17 07/30/17 07/30/17 15:24 16:00 19:22 Temperature 97.5 F 97.7 F Pulse Rate 76 74 Respiratory 19 17 Rate Blood Pressure 131/60 130/65 (mmHg) O2 Sat by Pulse 94 94 96 Oximetry 07/30/17 07/30/17 07/31/17 19:45 23:49 00:00 Temperature 97.8 F Pulse Rate 73 Respiratory 16 22 Rate Blood Pressure 105/58 (mmHg) O2 Sat by Pulse 91 91 Oximetry 07/31/17 07/31/17 07/31/17 07:25 07:29 11:09 Temperature 97.3 F 98.1 F Pulse Rate 72 69 Respiratory 20 16 20 Rate Blood Pressure 129/75 130/71 (mmHg) O2 Sat by Pulse 96 95 Oximetry 07/31/17 11:27 Temperature 98.1 F Pulse Rate 69 Respiratory 20 Rate Blood Pressure 130/71 (mmHg) O2 Sat by Pulse 95 Oximetry Oxygen Devices in Use Now: Nasal Cannula - 2L-95% Appearance: Middle aged male sitting up in bed, NAD Eyes: No Scleral Icterus Ears/Nose/Mouth/Throat: Mucous Membranes Moist Respiratory: Symmetrical Chest Expansion and Respiratory Effort, Clear to Auscultation Cardiovascular: NL Sounds; No Murmurs; No JVD, RRR, - - much improved LE edema ( now trace ankle edema) Abdominal: NL Sounds; No Tenderness; No Distention, - - +umbilical hernia Extremities: No Clubbing, Cyanosis Skin: No Rash or Ulcers, No Nodules or Sclerosis, - - numerous excoriations to lower legs Neurological: Alert and Oriented x 3 Result Diagrams: 07/29/17 15:55 10/28/17 06:21 Additional Lab and Data: Lab Results 07/27/17 07/27/17 07/27/17 Range/Units 13:03 13:03 13:03 WBC (3.5-10.8) 10^3/ul RBC (4.0-5.4) 10^6/ul Hgb (14.0-18.0) g/dl Hct (42-52) % MCV (80-94) fL MCH (27-31) pg MCHC (31-36) g/dl RDW (10.5-15) % Plt Count (150-450) 10^3/ul MPV (7.4-10.4) um3 Neut % (Auto) (38-83) % Lymph % (Auto) (25-47) % [place] % (Auto) (1-9) % Eos % (Auto) (0-6) % Baso % (Auto) (0-2) % Absolute Neuts (auto) (1.5-7.7) 10^3/ul Absolute Lymphs (auto) (1.0-4.8) 10^3/ul Absolute Monos (auto) (0-0.8) 10^3/ul Absolute Eos (auto) (0-0.6) 10^3/ul Absolute Basos (auto) (0-0.2) 10^3/ul Absolute Nucleated RBC 10^3/ul Nucleated RBC % INR (Anticoag Therapy) 1.02 (0.89-1.11) Sodium 136 (133-145) mmol/L Potassium 4.5 (3.5-5.0) mmol/L Chloride 102 (101-111) mmol/L Carbon Dioxide 28 (22-32) mmol/L Anion Gap 6 (2-11) mmol/L BUN 27 H (6-24) mg/dL Creatinine 1.36 H (0.67-1.17) mg/dL Est GFR ( Amer) 66.8 (>60) Est GFR (Non-Af Amer) 52.0 (>60) BUN/Creatinine Ratio 19.9 (8-20) Glucose 129 H (70-100) mg/dL Calcium 8.7 (8.6-10.3) mg/dL Magnesium 1.7 L (1.9-2.7) mg/dL Total Bilirubin 0.50 (0.2-1.0) mg/dL AST 13 (13-39) U/L ALT 17 (7-52) U/L Alkaline Phosphatase 53 (34-104) U/L Total Creatine Kinase 91 (10-223) U/L CK-MB (CK-2) 3.6 (0.6-6.3) ng/mL Troponin I 0.00 (<0.04) ng/mL B-Natriuretic Peptide 246 H ( - 100) pg/mL Total Protein 6.3 L (6.4-8.9) g/dL Albumin 3.6 (3.2-5.2) g/dL Globulin 2.7 (2-4) g/dL Albumin/Globulin Ratio 1.3 (1-3) TSH 3.51 (0.34-5.60) mcIU/mL 07/27/17 Range/Units 13:03 WBC 7.9 (3.5-10.8) 10^3/ul RBC 4.52 (4.0-5.4) 10^6/ul Hgb 13.1 L (14.0-18.0) g/dl Hct 39 L (42-52) % MCV 87 (80-94) fL MCH 29 (27-31) pg MCHC 34 (31-36) g/dl RDW 15 (10.5-15) % Plt Count 228 (150-450) 10^3/ul MPV 8 (7.4-10.4) um3 Neut % (Auto) 80.6 (38-83) % Lymph % (Auto) 9.5 L (25-47) % [place] % (Auto) 8.5 (1-9) % Eos % (Auto) 0.6 (0-6) % Baso % (Auto) 0.8 (0-2) % Absolute Neuts (auto) 6.3 (1.5-7.7) 10^3/ul Absolute Lymphs (auto) 0.8 L (1.0-4.8) 10^3/ul Absolute Monos (auto) 0.7 (0-0.8) 10^3/ul Absolute Eos (auto) 0 (0-0.6) 10^3/ul Absolute Basos (auto) 0.1 (0-0.2) 10^3/ul Absolute Nucleated RBC 0 10^3/ul Nucleated RBC % 0 INR (Anticoag Therapy) (0.89-1.11) Sodium (133-145) mmol/L Potassium (3.5-5.0) mmol/L Chloride (101-111) mmol/L Carbon Dioxide (22-32) mmol/L Anion Gap (2-11) mmol/L BUN (6-24) mg/dL Creatinine (0.67-1.17) mg/dL Est GFR ( Amer) (>60) Est GFR (Non-Af Amer) (>60) BUN/Creatinine Ratio (8-20) Glucose (70-100) mg/dL Calcium (8.6-10.3) mg/dL Magnesium (1.9-2.7) mg/dL Total Bilirubin (0.2-1.0) mg/dL AST (13-39) U/L ALT (7-52) U/L Alkaline Phosphatase (34-104) U/L Total Creatine Kinase (10-223) U/L CK-MB (CK-2) (0.6-6.3) ng/mL Troponin I (<0.04) ng/mL B-Natriuretic Peptide ( - 100) pg/mL Total Protein (6.4-8.9) g/dL Albumin (3.2-5.2) g/dL Globulin (2-4) g/dL Albumin/Globulin Ratio (1-3) TSH (0.34-5.60) mcIU/mL Assess/Plan/Problems-Billing Mr Torres is a 67 yo M with a h/o HTN, HLD, obesity, past h/o smoking who presented to his PCPs office for LE edema and was found to be in atrial fibrillation and sent to the ER for evaluation. - Patient Problems (1) UTI (urinary tract infection) Current Visit: Yes Status: Acute Comment: The patient's urine has grown citrobacter youngae. Sensitive to Bactrim-treat for 10 days. (2) Hypoxia Current Visit: Yes Status: Acute Code(s): R09.02 - HYPOXEMIA SNOMED Code(s ): 934608305 Comment: Pt is appearing to need 4L O2 with sleep and likely at least 2L with ambulation. Nursing will ambulate pt and check to see how much O2 is needed continuously. He will need a formal sleepy study. (3) Atrial fibrillation Current Visit: Yes Status: Acute Code(s): I48.91 - UNSPECIFIED ATRIAL FIBRILLATION SNOMED Code(s): 64752236 Comment: The patient has remained in NSR with a rate in the 70-80's. Continue atenolol 50mg daily (diltiazem has been discontinued). Continue xarelto. Follow up with Dr Araujo as an outpatient. (4) Edema leg Current Visit: Yes Status: Acute Code(s): R60.0 - LOCALIZED EDEMA SNOMED Code(s): 618831448 Comment: Edema essentially gone. Will give Rx for prn lasix if his weight goes up by 3lb and he has LE edema. I do not think he needs daily lasix at this time. (5) Iron deficiency anemia Current Visit: Yes Status: Acute Code(s): D50.9 - IRON DEFICIENCY ANEMIA, UNSPECIFIED SNOMED Code(s): 57619394 Comment: The patient has been found to be iron deficient. He will be started on ferrous sulfate but should have outpt eval for GI losses. (6) Stage III chronic kidney disease Current Visit: Yes Status: Acute Code(s): N18.3 - CHRONIC KIDNEY DISEASE, STAGE 3 (MODERATE) SNOMED Code(s): 064261493 Comment: Creatinine is slightly higher today than the last couple days but still in his baseline range. Follow as outpatient. (7) Hypertension Current Visit: Yes Status: Acute Code(s): I10 - ESSENTIAL (PRIMARY) HYPERTENSION SNOMED Code(s): 14481728 Comment: BP has been under good control without the diltiazem. Continue atenolol and HCTZ. (8) Type II diabetes mellitus Current Visit: Yes Status: Acute Comment: Sugars have been under fair control. Continue metformin 500mg daily but will need to be cautious as his creatinine is just about the the cutoff of where this should be discontinued. (9) BPH (benign prostatic hyperplasia) Current Visit: Yes Status: Acute Code(s): N40.0 - BENIGN PROSTATIC HYPERPLASIA WITHOUT LOWER URINRY TRACT SYMP SNOMED Code(s): 728448750 Comment: Continue flomax and finasteride. Stable. (10) GERD (gastroesophageal reflux disease) Current Visit: Yes Status: Acute Code(s): K21.9 - GASTRO-ESOPHAGEAL REFLUX DISEASE WITHOUT ESOPHAGITIS SNOMED Code(s): 804843708 Comment: Continue omeprazole. (11) DVT prophylaxis Current Visit: Yes Status: Acute Code(s): CGM0856 - SNOMED Code(s): 579869411 Comment: [place] (12) Full code status Current Visit: Yes Status: Acute Code(s): Z78.9 - OTHER SPECIFIED HEALTH STATUS SNOMED Code(s): 156963230
--- NOTE | 2017-07-31 23:19 | DS ---
CC: Dr. Araujo; Dr. Browne * DISCHARGE SUMMARY: DATE OF ADMISSION: 07/27/17 DATE OF DISCHARGE: 07/31/17 PRIMARY CARE PROVIDER: Dr. Browne. CHIEF QUALITY OFFICER: Dr. Araujo. PRINCIPAL DIAGNOSES: 1. Atrial fibrillation with resultant lower extremity edema without evidence of congestive heart failure. 2. Nocturnal hypoxia likely secondary to obstructive sleep apnea. 3. Probable chronic obstructive pulmonary disease, needs confirmatory PFTs. 4. Type 2 diabetes. 5. Hypertension. SECONDARY DIAGNOSES: 1. Benign prostatic hypertrophy. 2. Gastroesophageal reflux disease. 3. Citrobacter youngae urinary tract infection. DISCHARGE MEDICATIONS: 1. Flomax 0.4 mg p.o. daily. 2. Gabapentin 300 mg p.o. b.i.d. p.r.n. pain. 3. Hydrochlorothiazide 25 mg p.o. daily. 4. Aspirin 81 mg p.o. daily. 5. Zyrtec 10 mg p.o. daily. 6. Albuterol 2 puffs inhaled q.4 hours p.r.n. shortness of breath. 7. Folic acid-vitamin B6 one tab p.o. daily. 8. Finasteride 5 mg p.o. daily. 9. Metformin 500 mg p.o. daily. 10. Omeprazole 20 mg p.o. daily. 11. Lipitor 10 mg p.o. daily. 12. Flonase 2 squirts to both nostrils daily. 13. Albuterol 1 neb inhaled 4 times daily p.r.n. shortness of breath. 14. Bactrim DS 1 tab p.o. b.i.d. x17 doses. 15. Xarelto 20 mg p.o. daily (new). 16. Lasix 20 mg p.o. daily p.r.n. weight gain of 3 pounds and lower extremity edema. 17. Ferrous sulfate 325 mg p.o. daily. 18. Atenolol 50 mg p.o. daily (reduced dose). Discontinued Medications: 1. Diltiazem. 2. Lisinopril. HOSPITAL COURSE: Mr. Torres is a 67-year-old male who presented to his primary care provider's office for evaluation of lower extremity edema and was found to be in atrial fibrillation. This is a new diagnosis for the patient. He was, therefore, sent to the emergency room for evaluation and likely admission. In the ER, the patient was found to be in controlled atrial fibrillation. He was noted to have marked lower extremity edema. The patient was admitted for management of both of these issues. He was seen in consultation by Dr. Araujo, who recommended a transesophageal-guided cardioversion as it was felt that likely his worsened lower extremity edema is likely secondary to his atrial fibrillation. The patient underwent initial transthoracic echocardiogram, which revealed his EF to be 50% to 55% with mildly reduced right ventricular global systolic function. Biatrial enlargement was noted. Moderate mitral regurgitation was noted and mild pulmonary hypertension was noted. The patient ultimately underwent transesophageal-guided cardioversion on 07/29/17. The patient has since remained in normal sinus rhythm. However, after the cardioversion, the patient went bradycardic due to being on both atenolol and diltiazem CD. The patient's atenolol dose was cut in half to 50 mg daily and his diltiazem was discontinued. The patient is now in sinus rhythm with a heart rate in the 70s to 80s, doing well. He was started on Eliquis prior to the transesophageal- guided cardioversion and will remain on this 20 mg daily. In terms of the patient's marked lower extremity edema, he received aggressive IV diuresis. The patient has lost approximately 20 pounds while in the hospital. His lower extremity edema is almost essentially resolved at this point. As it is felt that his edema was secondary to decompensation from being in atrial fibrillation, the decision was made to not the patient on daily Lasix; however, to provide a prescription for 20 mg daily if needed if his weight goes up by 3 pounds and he has lower extremity edema. The patient will need to follow up with Dr. Araujo in approximately 1 month. During the course of the patient's hospitalization, he was found to be hypoxic. The patient was markedly hypoxic at night. A nocturnal desaturation study was performed and showed that his O2 saturation was less than 89% for 87% of the time he is sleeping, which was 5 hours and 57 minutes. He repeated the study on 2 L of oxygen and at this time, his O2 saturation was less than 89% for 54 minutes or 18.7% of the time sleeping. He is going to be discharged home with oxygen to be used at 4 L with sleep. The patient likely has obstructive sleep apnea and needs to have a formal sleep study performed in the near future. The patient was also found to be hypoxic with ambulation. He does have past history of smoking and perhaps he has underlying COPD. The patient has been set up for oxygen at 2 L per minute continuously except with sleep when it should be 4 L. The patient should have confirmatory PFT testing to make the diagnosis of COPD. Pulmonary evaluation may benefit the patient. The patient's diabetes has been under fair control during his hospitalization; however, he has not been on his usual dose of metformin. I have restarted this ; however, his creatinine is right at the cut off of when the metformin should be discontinued. His creatinine will need to be monitored closely and if his creatinine crosses 1.5, the metformin should be discontinued and he should be started on a new agent. The patient's stage 3 chronic kidney disease is essentially stable during hospitalization despite IV diuresis. The patient was also found to be anemic. He has been anemic off and on dating back to 2012. Iron studies reveal that he is iron deficient. Outpatient evaluation should be undertaken to evaluate for any GI losses including stool guaiacs, potential EGD and colonoscopy if he is not up-to-date with this. The patient's blood pressure has been under good control with the reduction of his atenolol and discontinuing the diltiazem and lisinopril. He will maintain on half dose atenolol and hydrochlorothiazide. His blood pressure will need to be monitored in the outpatient setting. FOLLOWUP CONCERNS: The patient is being discharged home today, 07/31/17. ACTIVITY LEVEL: As tolerated. DIET: Diabetic heart healthy. CONDITION AT DISCHARGE: Stable. The patient should follow up with Dr. Browne on 08/04/17 at 11:[address] Araujo in approximately 1 month. TIME SPENT: 40 minutes were spent discharging this patient. [id number]/[facility] #: [id number] [facility]PITALNorma
== END 2017-07-31 14:05 | disposition home or self-care (01) | DRG 309 ==
LOC: ED 12:32 → MEDTELE 16:51 → OBSVTOIN 07-28 09:00 → MEDTELE 07-29 03:36
PROVIDERS: ADMIT Internal Medicine; ATTEND Hospitalist
PROC: B24BZZ4 Ultrasonography of Heart with Aorta, Transesophageal (ICD-10-PCS; 2017-07-29)
PROC: 5A2204Z Restoration of Cardiac Rhythm, Single (ICD-10-PCS; principal; 2017-07-29 13:15)
DX: I48.91 Unspecified atrial fibrillation (principal); N39.0 Urinary tract infection, site not specified; E11.22 Type 2 diabetes mellitus with diabetic chronic kidney disease; I27.20 Pulmonary hypertension, unspecified; E66.9 Obesity, unspecified; B96.89 Other specified bacterial agents as the cause of diseases classified elsewhere; D50.9 Iron deficiency anemia, unspecified; E78.5 Hyperlipidemia, unspecified; N40.0 Benign prostatic hyperplasia without lower urinary tract symptoms; K21.9 Gastro-esophageal reflux disease without esophagitis; G89.29 Other chronic pain; R60.0 Localized edema; I34.0 Nonrheumatic mitral (valve) insufficiency; N18.3 Chronic kidney disease, stage 3 (moderate); I12.9 Hypertensive chronic kidney disease with stage 1 through stage 4 chronic kidney disease, or unspecified chronic kidney disease; G47.33 Obstructive sleep apnea (adult) (pediatric); R00.1 Bradycardia, unspecified; R09.02 Hypoxemia; T44.7X5A Adverse effect of beta-adrenoreceptor antagonists, initial encounter; T46.1X5A Adverse effect of calcium-channel blockers, initial encounter; Y92.239 Unspecified place in hospital as the place of occurrence of the external cause; Z82.49 Family history of ischemic heart disease and other diseases of the circulatory system; Z87.891 Personal history of nicotine dependence; Z68.37 Body mass index [BMI] 37.0-37.9, adult; Z79.82 Long term (current) use of aspirin; Z79.01 Long term (current) use of anticoagulants; Z79.84 Long term (current) use of oral hypoglycemic drugs
CPT/HCPCS: 36415; 71020; 80048; 80053; 80061; 81003; 81015; 82043; 82550; 82553; 82570; 82607; 82728; 83036; 83540; 83550; 83735; 83880; 84153; 84443; 84484; 85025; 85027; 85610; 87077; 87086; 87186; 92960; 93005; 93306; 93312; 93325; 94762; 99156; 99157; A9270-GY; C8929; G0103; G0378; J1644; J1940; J2250; J2310; J3010; J3475

== ENCOUNTER 2017-11-24 10:20 | Emergency (ER) | payer MEDICARE, OTHER ==
[2017-11-24] MEDS ORDERED: Clindamycin 600 MG IVPREMIX(* 600 MG/50 ML SDV IV ONE (12:24)
[2017-11-24] MEDS ORDERED: Iodixanol* (CONTRAST) 320 MG/ML 100 ML SDV IV ONE (12:33)
[2017-11-24 13:07] LABS: ABS Basophils 0.1 10^3/ul (0-0.2); ABS Eosinophils 0 10^3/ul (0-0.6); ABS Lymphocytes 0.4 10^3/ul (1.0-4.8); ABS Monocytes 1.4 10^3/ul (0-0.8); ABS Neutrophils 12.9 10^3/ul (1.5-7.7); ABS Nucleated RBC 0 10^3/ul; Eosinophil % 0 % (0-6); Hematocrit 42 % (42-52); Hemoglobin 14.2 g/dl (14.0-18.0); Lymphocyte % 2.5 % (25-47); Mean Corpuscular HGB Conc 34 g/dl (31-36); Mean Corpuscular Hemoglobin 29 pg (27-31); Mean Corpuscular Volume 84 fL (80-94); Mean Platelet Volume 9 um3 (7.4-10.4); Nucleated Red Blood Cells % 0; Platelet Count 167 10^3/ul (150-450); Red Blood Count 4.94 10^6/ul (4.0-5.4); Red Cell Distribution Width 15 % (10.5-15); White Blood Count 14.7 10^3/ul (3.5-10.8)
[2017-11-24 13:26] LABS: INR 1.87 (0.77-1.02)
--- NOTE | 2017-11-24 13:26 | ED ---
Throat Pain/Nasal Congestion - HPI Summary HPI Summary: Pt here w/ ST, dysphagia and Rt sided facial swelling w/ muffled voice since today. Was recently seen at PCP's office and dx'd w/ oral thrush - has been taking clotrimazole troches w/o much relief. He also has DM for which he typically takes metformin and runs in the 130-160's. While at PCP's office yesterday, blood glucose was 586. Today after adding glipizide to regimen yesterday, he's in the 300's. Denies fever, chills, N/V/D, chest pain or SOB. He has COPD which he treats w/ flovent, ventolin and flonase nasal spray. He's also on O2 daily at home. Denies cough, wheezing, rhinorrhea, otalgia but does admit he's had some Rt upper dental pain past week - has not reported to anyone as it wasn't too bothersome. Denies drainage into mouth. - History of Current Complaint Chief Complaint: EDThroatPain Time Seen by Provider: 11/24/17 12:02 Hx Obtained From: Patient, Family/Laundry Marker Supervisor - brother - Bill - Allergies/Home Medications Allergies/Adverse Reactions: Allergies Allergy/AdvReac Type Severity Reaction Status Date / Time No Known Allergies Allergy Verified 07/27/17 12:54 PMH/Surg Hx/FS Hx/Imm Hx Previously Healthy: Yes Endocrine/Hematology History: Reports: Hx Diabetes - PO meds, controlled Cardiovascular History: Reports: Hx Atrial Fibrillation - xarelto, Hx Hypertension, Other Cardiovascular Problems/Disorders - INCONSISTENT VALVE, hyperlipidemia Respiratory History: Reports: Hx Chronic Obstructive Pulmonary Disease (COPD) - tx's w/ inhaled medications, home 02 GI History: Reports: Hx Gastroesophageal Reflux Disease History: Reports: Hx Benign Prostatic Hyperplasia Denies: Hx Renal Disease Musculoskeletal History: Reports: Hx Arthritis Sensory History: Reports: Hx Contacts or Glasses - glasses Denies: Hx Hearing Aid Opthamlomology History: Reports: Hx Contacts or Glasses - glasses Neurological History: Reports: Other Neuro Impairments/Disorders - neuropathy - Surgical History Surgery Procedure, Year, and Place: Exploratory abdominal surgery 1975, right hernia/testicular surgery - Immunization History Immunizations Up to Date: Yes Infectious Disease History: No Infectious Disease History: Denies: Traveled Outside the [place] in Last 30 Days - Family History Known Family History: Positive: Cardiac Disease, Hypertension - Social History Lives: Alone - Alcohol Use: None - used to be daily, quit Hx Substance Use: No Substance Use Type: Reports: None Hx Tobacco Use: Yes - not currently Smoking Status (MU): Former Smoker Review of Systems Constitutional: Negative Negative: Fever, Chills, Fatigue Eyes: Negative Positive: Sore Throat Cardiovascular: Negative Respiratory: Negative Gastrointestinal: Negative Positive: no symptoms reported Musculoskeletal: Negative Skin: Negative Neurological: Negative Psychological: Normal All Other Systems Reviewed And Are Negative: Yes Physical Exam Triage Information Reviewed: Yes Vital Signs On Initial Exam: Initial Vitals Temp Pulse Resp BP Pulse Ox 98.8 F 82 20 126/63 90 11/24/17 10:24 11/24/17 10:24 11/24/17 10:24 11/24/17 10:24 11/24/17 10:24 Vital Signs Reviewed: Yes Appearance: Positive: Ill-Appearing - pt is alert but voice is muffled and he has cheryl, firm edema along Rt side of face and in submandibular region - TTP, Pain Distress - mild, Obese Skin: Positive: Warm, Skin Color Reflects Adequate Perfusion, Dry Head/Face: Positive: Other - as above Eyes: Positive: Normal, EOMI, Conjunctiva Clear. Negative: Conjunctiva Inflammed, Discharge ENT: Positive: Normal ENT inspection, Hearing grossly normal, Pharyngeal erythema - soft palate w/ cheryl erythema and edema along w/ scant stuck on white spots, Muffled voice. Negative: Nasal congestion, Nasal drainage, Trismus - no pain w/ mandibular depression but reports "it's difficult" Dental: Negative: Abscess @ - limited exam Neck: Positive: Tenderness @, Other: - as above Respiratory/Lung Sounds: Positive: Breath Sounds Present, Rales - throughout chest. Negative: Decreased Breath Sounds, Rhonchi, Stridor, Tracheal Deviation , Wheezes, Unable to speak in full sentences, Fatigue Cardiovascular: Positive: IRR, Leg Edema Left, Leg Edema Right Abdomen Description: Positive: Nontender, No Organomegaly, Soft Bowel Sounds: Positive: Present Musculoskeletal: Positive: Normal, Strength/ROM Intact Neurological: Positive: Normal, Sensory/Motor Intact, Alert, Oriented to Person Place, Time, CN Intact II-III Psychiatric: Positive: Normal - calm, cooperative Diagnostics - Vital Signs Vital Signs Temp Pulse Resp BP Pulse Ox 11/24/17 12:30 78 19 133/56 88 11/24/17 12:28 144/75 11/24/17 11:28 98 F 83 20 117/53 90 11/24/17 10:24 98.8 F 82 20 126/63 90 - Laboratory Lab Results: Lab Results 11/24/17 11/24/17 11/24/17 Range/Units 11:27 11:27 12:49 WBC 14.7 H (3.5-10.8) 10^3/ul RBC 4.94 (4.0-5.4) 10^6/ul Hgb 14.2 (14.0-18.0) g/dl Hct 42 (42-52) % MCV 84 (80-94) fL MCH 29 (27-31) pg MCHC 34 (31-36) g/dl RDW 15 (10.5-15) % Plt Count 167 (150-450) 10^3/ul MPV 9 (7.4-10.4) um3 Neut % (Auto) 87.6 H (38-83) % Lymph % (Auto) 2.5 L (25-47) % Pratt % (Auto) 9.2 H (1-9) % Eos % (Auto) 0 (0-6) % Baso % (Auto) 0.7 (0-2) % Absolute Neuts (auto) 12.9 H (1.5-7.7) 10^3/ul Absolute Lymphs (auto) 0.4 L (1.0-4.8) 10^3/ul Absolute Monos (auto) 1.4 H (0-0.8) 10^3/ul Absolute Eos (auto) 0 (0-0.6) 10^3/ul Absolute Basos (auto) 0.1 (0-0.2) 10^3/ul Absolute Nucleated RBC 0 10^3/ul Nucleated RBC % 0 Influenza A (Rapid) Negative (Negative) Influenza B (Rapid) Negative (Negative) Group A Strep Rapid Negative (Negative) Result Diagrams: 11/24/17 12:49 11/24/17 12:49 Lab Statement: Any lab studies that have been ordered have been reviewed, and results considered in the medical decision making process. EENT Course/Dx - Course Course Of Treatment: Pt presents w/ Rt sided facial swelling, pain here and ST/ dysphagia. He is able to swallow his saliva and ice chips but "it's difficult". Breathing well but also has COPD and on home O2 - has been on it since here as well. Vitals are WNL. Initial tx w/ clindamycin. His labs reveals dehydration so IVF were started (this was initially delayed as pt did not meet spesis criteria and mucous membranes moist w/ h/o LE edema). He has been tolerating IVF well here. Decadron was also initially withheld d/t elevated blood glucose level however with edema seen on CT and clinical presentation of dysphagia, decadron was added. Discussed care with Dr. Nettles who agrees w/ admission. Unfortunately, we do not have ENT sld educational aide today and hospital team is not comfortable managing pt w/o this service today. Will transfer to [facility] w/ transfer center and Dr. Cook in ED there will receive pt. He is stable at time of transfer and maintanence fluids will continue during transport. - Diagnoses Provider Diagnoses: Peritonsillar abscess, Dysphagia Discharge - Discharge Plan Condition: Stable Disposition: TRANS HIGHER LVL OF CARE FAC Referrals: Eulalio Browne MD [Primary Care Provider] -
[2017-11-24 13:33] LABS: EGFR Non-African American 40.4 (>60)
--- NOTE | 2017-11-24 13:33 | RAD ---
INDICATION: Diffuse rales, history of COPD. COMPARISON: Comparison is made with a prior study from July 27, 2017. TECHNIQUE: AP and lateral views of the chest were obtained. FINDINGS: The heart appears mildly enlarged and unchanged. Mediastinal and hilar contours appear within normal limits. The lungs are hyperinflated and clear. No pleural effusion is seen. IMPRESSION: FINDINGS SUGGESTIVE OF COPD, NO EVIDENCE FOR ACUTE FINDING.
[2017-11-24] MEDS ORDERED: NS 0.9% 1000 ML* 1,000 ML IV ONE (13:39)
--- NOTE | 2017-11-24 13:48 | RAD ---
Indication: Right-sided throat, face and neck swelling with dysphasia. Contrast: 50 mL of Visipaque 320 CT of the neck was performed without IV contrast. There is asymmetric enlargement of the right-sided right-sided tonsillar pillar with low density mass noted in the right tonsillar pillar. This measures approximately 3 cm in length x 2 cm AP x 2 cm in width. There is edema and increased density noted in the right parapharyngeal space. There is marked enlargement of the right parotid gland. This is suspicious for tonsillar pillar abscess. Edema extends into the equipment tester space and extends into the submandibular space. This is likely inflammatory although neoplastic process is not excluded. Extensive edema is noted the level of the hyoid bone causing mass effect on the larynx. The left submandibular gland and parotid glands are unremarkable. Inferior thyroid lobes are unremarkable. Lung apices are unremarkable. IMPRESSION: There is a mass in the right tonsillar pillar measuring at least 3 x 2 x 2 cm with extensive edema extending into the parapharyngeal space, enlargement of the right parotid gland and right submandibular space. This extends into the larynx. This likely represents inflammatory process although a neoplastic process is not totally excluded. Findings discussed with SOWMYA Srivastava at 1344 hours
[2017-11-24] MEDS ORDERED: Dexamethasone IV* 4 MG/ML 1 ML (4 MG) IV SLOW PU ONE (14:11)
[2017-11-24 15:34] VITALS: BP 119/59
== END 2017-11-24 16:02 | disposition short-term general hospital (02) ==
LOC: ED 10:20
DX: J36 Peritonsillar abscess (principal); R13.10 Dysphagia, unspecified; R22.0 Localized swelling, mass and lump, head; E11.9 Type 2 diabetes mellitus without complications; Z79.84 Long term (current) use of oral hypoglycemic drugs; I48.91 Unspecified atrial fibrillation; Z79.01 Long term (current) use of anticoagulants; J44.9 Chronic obstructive pulmonary disease, unspecified; K21.9 Gastro-esophageal reflux disease without esophagitis; Z79.899 Other long term (current) drug therapy
CPT/HCPCS: 36415; 70491; 71046; 80053; 83605; 84484; 85025; 85610; 85730; 86140; 87040; 87150; 87502; 87651; 96361; 96365; 96375; 99283; J1100; Q9967

== ENCOUNTER 2018-12-26 17:28 | Inpatient (IN) | payer MEDICARE ==
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
[2018-12-26] MEDS ORDERED: cefTRIAXone(*) 1 GM in NS 0.9% 50 ML* 50 ML IVPB ONE (17:51)
[2018-12-26] MEDS ORDERED: NS 0.9% 1000 ML** 1,000 ML IV SCH (18:00)
[2018-12-26 18:14] LABS: ABS Basophils 0 10^3/ul (0-0.2); ABS Eosinophils 0 10^3/ul (0-0.6); ABS Lymphocytes 0.5 10^3/ul (1.0-4.8); ABS Monocytes 1.4 10^3/ul (0-0.8); ABS Neutrophils 14.5 10^3/ul (1.5-7.7); ABS Nucleated RBC 0 10^3/ul; Eosinophil % 0 %; Hematocrit 33 % (36-46); Mean Corpuscular HGB Conc 33 g/dL (31-36); Mean Corpuscular Hemoglobin 27 pg (27-31); Mean Corpuscular Volume 80 fL (80-94); Mean Platelet Volume 7.8 fL (7.4-10.4); Nucleated Red Blood Cells % 0; Platelet Count 160 10^3/uL (150-450); Red Blood Count 4.16 10^6 /uL (4.18-5.48); Red Cell Distribution Width 20 % (10.5-15); White Blood Count 16.5 10^3/uL (3.5-10.8)
[2018-12-26 18:30] LABS: Albumin 3.6 g/dL (3.2-5.2); Albumin/Globulin Ratio 1.2 (1-3); BUN/Creatinine Ratio 13.7 (8-20); C Reactive Protein 299.3 mg/L (<8.01); Calcium 8.5 mg/dL (8.6-10.3); EGFR Non-African American 13.2 (>60); Globulin 2.9 g/dL (2-4); Potassium 4.8 mmol/L (3.5-5.0); Total Bilirubin 0.5 mg/dL (0.2-1.0); Total Protein 6.5 g/dL (6.4-8.9)
[2018-12-26 18:32] LABS: Troponin I 0.02 ng/mL (<0.04)
[2018-12-26 18:34] LABS: CKMB ng/mL 1.5 ng/mL (0.6-6.3)
[2018-12-26 18:50] LABS: Influenza A Molecular NEGATIVE (Negative); Influenza B Molecular NEGATIVE (Negative)
[2018-12-26] MEDS ORDERED: Azithromycin IV(*) 500 MG in NS 0.9% 250 ML* 250 ML IVPB SCH (19:00)
[2018-12-26] MEDS ORDERED: Azithromycin IV(*) 500 MG in NS 0.9% 250 ML* 250 ML IVPB ONE (19:05)
[2018-12-26] MEDS ORDERED: Lactated Ringers 1000 ML Bag* 1,000 ML IV.FLUID IV ONE (19:23)
[2018-12-26] MEDS ORDERED: Albuterol HFA INHALER* 8 gm MDI INH PRN (19:30)
[2018-12-26] MEDS ORDERED: Albuterol 2.5 MG/3 ML NEB.SOL* (0.083%) INH PRN (19:37)
[2018-12-26] MEDS ORDERED: Dextrose 50% Syringe 50 ML* 25 GM/50 ML SYRINGE IV PUSH PRN (19:41)
[2018-12-26] MEDS ORDERED: NS 0.9% 250 ML* 250 ML ONE (19:43)
[2018-12-26] MEDS: Mometasone 220 MCG MDI INH SCH (20:24)
[2018-12-26 20:32] LABS: Influenza A Molecular NEGATIVE (Negative); Influenza B Molecular NEGATIVE (Negative)
[2018-12-26] MEDS: Atorvastatin* 10 MG TAB PO SCH (21:24)
[2018-12-26] MEDS: Tamsulosin CAP* 0.4 MG PO SCH (21:24)
[2018-12-26] MEDS: Insulin LISPRO* 1 UNITS UNIT SUBCUT SCH (21:24)
[2018-12-26] MEDS: Gabapentin CAP(*) 300 MG PO SCH (21:24)
[2018-12-26] MEDS: Heparin VIAL(*) 5000 UNITS/ML VIAL (FIVE THOUSAND) IV SCH (21:27)
[2018-12-26] MEDS: Heparin DRIP 25,000 UNITS(*) 25,000 UNITS/500 ML BAG IV SCH (21:28)
[2018-12-26 22:27] LABS: Urine Appearance Cloudy; Urine Bilirubin Negative (Negative); Urine Blood Negative (Negative); Urine Color Amber; Urine Glucose Negative (Negative); Urine Ketones Negative (Negative); Urine Nitrite Negative (Negative); Urine Protein Negative (Negative); Urine Specific Gravity 1.013 (1.010-1.030); Urine Urobilinogen Negative (Negative)
[2018-12-26 22:41] LABS: Urine Creatinine Concentration 176.75 mg/dL; Urine Sodium Concentration < 18 mmol/L
[2018-12-26] MEDS: Lactated Ringers 1000 ML Bag* 1,000 ML IV SCH (23:40)
--- NOTE | 2018-12-26 23:57 | HP ---
CC: Dr. Eulalio Browne * HISTORY AND PHYSICAL: DATE OF ADMISSION: 12/26/18 TIME OF EVALUATION: 7 p.m. PRIMARY CARE PROVIDER: Dr. Eulalio Browne CHIEF COMPLAINT: Shortness of breath and cough. HISTORY OF PRESENT ILLNESS: Mr. Torres is a 68-year-old male with a past medical history of obesity with a BMI of 39; atrial fibrillation, on anticoagulation with Xarelto; hypertension; BPH; type 2 diabetes; GERD; hyperlipidemia; COPD; probable obstructive sleep apnea, who presented to the emergency room with complaints of malaise, cough, and left-sided chest pain. The patient states he was on his usual state of health until a week ago when he started to have some dry cough. He states that the cough has progressed, become more frequently, and now he is expectorating brown sputum. Over the weekend, he started to feel more poorly with body aches, chills, and sensation of fever, although he did not measure his temperature. He developed left-sided chest pain, stabbing in nature, worse with deep inspiration and cough. He also had more shortness of breath and today he contacted his primary care provider's office and was advised to come to the emergency room for further evaluation. He thinks he received his pneumonia and influenza vaccines at Dr. Browne's office. He denies nausea, but states his appetite is poor, and he did have some liquid diarrhea today, not associated with abdominal pain. He states that he does not make a lot of urine, but this is not new to him, and he thinks his urine is unchanged from his baseline. PAST MEDICAL HISTORY: 1. Hypertension. 2. BPH. 3. Type 2 diabetes. 4. GERD. 5. Hyperlipidemia. 6. COPD. 7. Atrial fibrillation. 8. Probable obstructive sleep apnea. MEDICATIONS: Medication list was reviewed with the patient and includes: 1. Acetaminophen 500 mg p.o. b.i.d. 2. Albuterol HFA 2 puffs inhaled q.4 hours for shortness of breath and wheezing. 3. Atenolol 50 mg p.o. daily. 4. Atorvastatin 10 p.o. at bedtime. 5. Cetirizine 10 mg p.o. daily as needed for allergies. 6. Finasteride 5 mg p.o. daily. 7. Fluticasone HFA 110 mcg 2 puffs inhaled b.i.d. 8. Gabapentin 300 mg p.o. b.i.d. 9. Glucosamine and chondroitin 1500 mg p.o. b.i.d. 10. Lisinopril 10 mg p.o. daily. 11. Magnesium oxide 400 mg p.o. daily. 12. Metformin 1000 mg p.o. b.i.d. 13. Mupirocin 2% cream topical to nose b.i.d. as needed for signs of infection. 14. Omeprazole 20 mg p.o. daily. 15. Potassium chloride 10 mEq p.o. daily. 16. Xarelto 20 mg p.o. at bedtime. 17. Tamsulosin 0.4 mg p.o. at bedtime. 18. Torsemide 20 mg p.o. daily. 19. Incruse Ellipta 62.5 mcg inhaled daily. 20. Vitamin D 1 capsule p.o. daily. ALLERGIES: No known drug allergies. FAMILY HISTORY: Reviewed and noncontributory. SOCIAL HISTORY: The patient smoked 1 to 2 packs a day for 40 years and he quit in 2011. No history of alcohol or recreational drugs. He is a . His son, Víctor Torres, is his surrogate decision maker, phone number is [phone]. REVIEW OF SYSTEMS: A 14-point review of systems was performed and all the pertinent negatives are as in the HPI. PHYSICAL EXAMINATION GENERAL: The patient is a pleasant, elderly gentleman, lying on the ED stretcher, in no acute distress. VITAL SIGNS: Temperature 98.7, heart rate is 89, respiratory rate is 24, oxygen saturation is 93% on 2 L nasal cannula, blood pressure is 85/50. HEENT: Pupils are equal. Dry mucous membranes. CHEST: Breath sounds are present bilaterally with crackles and wheezing on the left. CVS: Normal S1 and S2. Regular rate and rhythm. ABDOMEN: Obese, soft, nontender, nondistended. Bowel sounds are present. EXTREMITIES: No edema. NEUROLOGIC: He is alert and oriented x3. Able to move all 4 extremities. DIAGNOSTIC STUDIES/LAB DATA: The patient had a CBC that showed a WBC of 16.5, hemoglobin 11, hematocrit 43, platelets of 160 with 88% neutrophils. Chemistry showed a sodium of 129, potassium 4.8, chloride 99, bicarb of 20, anion gap of 10, BUN of 61, creatinine of 4.4, glucose of 173, lactic acid 1.7, calcium 8.5. LFTs are normal. CRP 299. BNP is 77. Influenza rapid test is negative. Chest x-ray was not yet officially read, but to my read, it reveals left mid lung field consolidation and partly some on the left base too. EKGs done on 12/26/18 at 1749 showed sinus tachycardia at 101 beats per minute with no acute ischemic changes. ASSESSMENT AND PLAN: Mr. Torres is a 68-year-old male with a past medical history of hypertension; benign prostatic hypertrophy; type 2 diabetes; gastroesophageal reflux disease; hyperlipidemia; chronic obstructive pulmonary disease; atrial fibrillation, on Xarelto; probable sleep apnea; obesity with a body mass index of 39; chronic kidney disease stage 3 probably secondary to diabetic nephropathy, who presented to the emergency room with complaints of malaise, chest pain, productive of cough, and shortness of breath, found to have severe sepsis secondary to pneumonia. 1. Severe sepsis. The patient meets sepsis criteria with tachycardia, tachypnea, and leukocytosis. He has become hypotensive in the emergency room and the source is community-acquired pneumonia. The patient will receive aggressive fluid resuscitation as he appears to be dehydrated at this time and he would be admitted to the intensive care unit for close monitoring. Although the patient's initial lactic acid was normal, I am concerned with his blood pressure drop, so I will continue to check serial lactic acids as I suspect this will trend up. 2. Community-acquired pneumonia. Blood cultures were sent in the emergency room. Influenza was negative. We are going to check his sputum cultures as well as legionella and pneumococcal antigen. I am concerned with the possibility of legionella especially considering his hyponatremia and gastrointestinal symptoms, so he will be continued on full-dose azithromycin until we get his legionella antigen back. He will also be treated with ceftriaxone. 3. Chronic obstructive pulmonary disease. Appears to be stable at this time. We will continue his bronchodilators and inhaled steroids. 4. Acute kidney injury. The patient's last creatinine in our system was in October 2018 and it was 1.2. I believe his renal failure is prerenal in the setting of dehydration with torsemide and lisinopril use. Those medications will be held for now. He will be fluid resuscitated. We are going to place a Frazier catheter and monitor his urine output. Urinalysis was already ordered and I am also going to check urinary sodium and urinary creatinine. 5. Atrial fibrillation. The patient is in normal sinus rhythm at this time, but he has a CHADS2-VASc score of 3 that predicts a risk of stroke of 3.2% per year. Unfortunately, with his renal failure, he cannot take Xarelto at this time , so I will transition him to apixaban until his renal function recovers. 6. Type 2 diabetes. We will check a hemoglobin A1c. The patient can only have metformin at this time due to his renal failure, so at this point, he will have the lispro sliding scale. Depending on how his glucose trends, we may need to add low dose basal insulin. 7. Chest pain, rule out acute coronary syndrome. I suspect his pleuritic left - sided chest pain is secondary to his pneumonia, but the patient does have risk factors for coronary artery disease. His first troponin was 0.02 and his EKG shows no acute ischemic changes. We will recheck serial troponins to rule out acute coronary syndrome. 8. Benign prostatic hypertrophy. We will continue finasteride and tamsulosin. 9. Deep venous thrombosis prophylaxis. The patient has a score of 4 on Deep Venous Thrombosis Prophylaxis Risk Assessment Guide and he is anticoagulated transitioning from Xarelto to Eliquis. 10. Code status. It was discussed with the patient and his son at bedside and he wishes to be a full code. He is agreeable with intubation if necessary. TIME SPENT: Approximately 70 minutes of critical care time was spent to complete the admission. This patient's case was signed out to manas, Dr. Asif, and he will follow up with sepsis reevaluation overnight. [id number]/[facility] #: [id number] REED
[2018-12-27] MEDS: Acetaminophen TAB* 325 MG PO PRN ×3 (00:43→17:59)
[2018-12-27] MEDS ORDERED: HYDROcodone/ACETAMIN 5-325 MG* 1 TAB PO PRN (00:45)
--- NOTE | 2018-12-27 00:46 | PN ---
Sepsis Event Evaluation Date of Evaluation: 12/27/18 Time of Evaluation: 00:45 Current Stage of Sepsis: Severe Sepsis Vital Signs - Last 12 Hours: Vital Signs - 12 hr Temp Pulse Resp BP Pulse Ox 12/26/18 23:00 38.2 C 89 25 109/52 93 12/26/18 22:46 38.1 C 90 26 122/53 94 12/26/18 22:31 92 27 126/59 94 12/26/18 22:15 88 25 121/51 93 12/26/18 22:00 88 20 103/53 93 12/26/18 21:45 89 23 98/56 93 12/26/18 21:31 88 23 108/52 94 12/26/18 21:15 87 23 104/56 92 12/26/18 21:00 89 23 107/52 94 12/26/18 20:45 87 22 107/54 93 12/26/18 20:31 90 25 93/42 96 12/26/18 20:16 38.2 C 85 24 92/51 96 12/26/18 20:10 88 20 104/50 91 12/26/18 20:00 24 12/26/18 19:50 38.0 C 86 26 104/50 93 12/26/18 19:06 25 89/50 12/26/18 19:00 91 24 92 12/26/18 18:55 87 25 80/40 93 12/26/18 18:25 23 81/39 12/26/18 18:00 26 12/26/18 17:56 103 27 82/43 92 12/26/18 17:55 100 23 87/52 93 12/26/18 17:54 97 28 93 12/26/18 17:30 37.1 C 102 30 117/61 93 Lactic Acid: 12/26/18 12/26/18 18:03 22:40 Lactic Acid 1.7 1.6 - Cardiopulmonary Exam Capillary Refill: < or = to 5 seconds Respiratory: Symmetrical Chest Expansion and Respiratory Effort, - - ronchi LT base Cardiovascular: NL Sounds; No Murmurs; No JVD - Peripheral Pulse Exam Radial Pulses: Bilateral Normal Pedal Pulses: Bilateral Diminished Posterior Tibial Pulse: Bilateral Normal Femoral Pulses: Bilateral Normal Popliteal Pulses: Bilateral Normal - Skin Exam Skin Exam: Normal Turgor - Michael Coma Scale Best Eye Response: 4 - Spontaneous Best Motor Response: 6 - Obeys Commands Best Verbal Response: 5 - Oriented Coma Scale Total: 15 Assess/Plan/Problems-Billing Assessment:
[2018-12-27] MEDS: Lactated Ringers 1000 ML Bag* 1,000 ML IV SCH ×3 (03:33→19:48)
[2018-12-27] MEDS: Heparin VIAL(*) 5000 UNITS/ML VIAL (FIVE THOUSAND) IV SCH ×4 (04:02→22:26)
[2018-12-27 06:10] LABS: Hematocrit 28 % (36-46); Hemoglobin 9.3 g/dL (14.0-18.0); Mean Corpuscular HGB Conc 33 g/dL (31-36); Mean Corpuscular Hemoglobin 26 pg (27-31); Mean Corpuscular Volume 80 fL (80-94); Mean Platelet Volume 8.3 fL (7.4-10.4); Platelet Count 154 10^3/uL (150-450); Red Blood Count 3.53 10^6 /uL (4.18-5.48); Red Cell Distribution Width 20 % (10.5-15); White Blood Count 15.6 10^3/uL (3.5-10.8)
[2018-12-27 06:21] LABS: ALT 14 U/L (7-52); Albumin 2.9 g/dL (3.2-5.2); Albumin/Globulin Ratio 1.1 (1-3); Alkaline Phosphatase 39 U/L (34-104); BUN/Creatinine Ratio 15.1 (8-20); Blood Urea Nitrogen 64 mg/dL (6-24); CO2 Carbon Dioxide 21 mmol/L (22-32); Calcium 7.4 mg/dL (8.6-10.3); Chloride 101 mmol/L (101-111); EGFR African American 16.9 (>60); Globulin 2.7 g/dL (2-4); Glucose 129 mg/dL (70-100); Sodium 130 mmol/L (135-145); Total Protein 5.6 g/dL (6.4-8.9)
[2018-12-27 06:24] LABS: ABS Basophils 0 10^3/ul (0-0.2); ABS Eosinophils 0 10^3/ul (0-0.6); ABS Lymphocytes 0.7 10^3/ul (1.0-4.8); ABS Monocytes 1.2 10^3/ul (0-0.8); ABS Neutrophils 13.7 10^3/ul (1.5-7.7); ABS Nucleated RBC 0 10^3/ul
[2018-12-27 06:27] LABS: Immature Granulocytes 16 % (0-9); Lymphocytes % 8 %; Metamyelocytes % 3 % (0-2); Monocytes % 8 %; Myelocytes % 2 % (0-1); Neutrophil % 68 %
[2018-12-27 06:29] LABS: Platelet Morphology Large
[2018-12-27 06:36] LABS: Anion Gap 8 mmol/L (2-11)
[2018-12-27] MEDS: Finasteride TAB* 5 MG PO SCH (07:50)
[2018-12-27] MEDS: Gabapentin CAP(*) 300 MG PO SCH ×2 (07:50→20:24)
[2018-12-27] MEDS: Vitamin B Complex TAB PO SCH (07:50)
[2018-12-27] MEDS: Pantoprazole TAB * 40 MG TAB PO SCH (07:50)
[2018-12-27] MEDS ORDERED: Loperamide CAP* 2 MG PO PRN (08:33)
--- NOTE | 2018-12-27 08:55 | PN ---
Subjective Date of Service: 12/27/18 Interval History: HOSPITALIST PROGRESS NOTE Patient seen and examined at bedside. Care reviewed and d/w Aleida Bhatt RN. He feels a little better today. Cough is less frequent, denies dyspnea. Had 2 liquid BMs so far today. Family History: Unchanged from Admission Social History: Unchanged from Admission Past Medical History: Unchanged from Admission Objective Active Medications: Acetaminophen (Tylenol Tab*) 650 mg PO Q4H PRN PRN Reason: FEVER/HEADACHE Last Admin: 12/27/18 07:50 Dose: 650 mg Hydrocodone Bitart/Acetaminophen ([place] 5-325 Tab*) 1 tab PO Q4H PRN PRN Reason: PAIN Albuterol (Ventolin Hfa Inhaler*) 2 puff INH Q4HR PRN PRN Reason: SHORTNESS OF BREATH Albuterol (Ventolin 2.5 Mg/3 Ml Neb.Teetee*) 2.5 mg INH Q4H PRN PRN Reason: SOB/WHEEZING Atorvastatin Calcium (Lipitor*) 10 mg PO BEDTIME [facility] Last Admin: 12/26/18 21:24 Dose: 10 mg Dextrose (D50w Syringe 50 Ml*) 12.5 gm IV PUSH .FOR FS < 60 - SS PRN PRN Reason: FS < 60 Finasteride (Proscar Tab*) 5 mg PO DAILY [facility] Last Admin: 12/27/18 07:50 Dose: 5 mg Gabapentin (Neurontin Cap(*)) 300 mg PO BID [facility] Last Admin: 12/27/18 07:50 Dose: 300 mg Heparin Sodium (Porcine) (Heparin Vial(*)) 0 units IV .PER PROTOCOL [facility] Last Admin: 12/27/18 04:02 Dose: 5,950 units Ceftriaxone Sodium 1 gm/ (Sodium Chloride) 50 mls @ 200 mls/hr IVPB Q24H [facility] Azithromycin 500 mg/ Sodium (Chloride) 250 mls @ 250 mls/hr IVPB Q24H [facility] Lactated Ringer's (Lactated Ringers 1000 Ml Bag*) 1,000 mls @ 150 mls/hr IV PER RATE [facility] Last Admin: 12/27/18 03:33 Dose: 150 mls/hr Heparin Sodium/Dextrose (Heparin Drip 25,000 Units(*)) 25,000 units in 500 mls @ 0 mls/hr IV PER RATE [facility]; Protocol Last Admin: 12/26/18 21:28 Dose: 26 mls/hr Insulin Human Lispro (Humalog*) 0 units SUBCUT ACHS [facility]; Protocol Last Admin: 12/26/18 21:24 Dose: 2 unit Loperamide HCl (Imodium Cap*) 2 mg PO .SEE DIRECTIONS PRN PRN Reason: DIARRHEA Mometasone Furoate (Asmanex 220 Mcg Mdi *) 2 puff INH BEDTIME [facility] Last Admin: 12/26/18 20:24 Dose: Not Given Pantoprazole Sodium (Protonix Tab*) 40 mg PO DAILY [facility] Last Admin: 12/27/18 07:50 Dose: 40 mg Tamsulosin HCl (Flomax Cap*) 0.4 mg PO BEDTIME [facility] Last Admin: 12/26/18 21:24 Dose: 0.4 mg Umeclidinium [place] (Incruse Ellipta Mdi (Nf)) 1 inh INH DAILY [facility] Vitamin B Complex/Vitamin E (B Complex-50*) 1 tab PO DAILY [facility] Last Admin: 12/27/18 07:50 Dose: 1 tab Vital Signs - 8 hr 12/27/18 12/27/18 12/27/18 01:00 01:09 01:15 Temperature 102.6 F 102.6 F 102.6 F Pulse Rate 99 95 95 Respiratory 27 26 24 Rate Blood Pressure 116/48 121/54 (mmHg) O2 Sat by Pulse 91 91 92 Oximetry 12/27/18 12/27/18 12/27/18 01:30 01:46 02:00 Temperature 102.6 F 102.4 F 102.2 F Pulse Rate 93 93 89 Respiratory 26 27 25 Rate Blood Pressure 121/55 134/113 112/45 (mmHg) O2 Sat by Pulse 91 93 95 Oximetry 12/27/18 12/27/18 12/27/18 02:15 02:30 02:45 Temperature 102.0 F 101.5 F 101.5 F Pulse Rate 87 86 89 Respiratory 20 28 26 Rate Blood Pressure 104/48 111/50 114/50 (mmHg) O2 Sat by Pulse 91 92 95 Oximetry 12/27/18 12/27/18 12/27/18 03:00 03:02 03:15 Temperature 101.5 F 101.5 F 101.5 F Pulse Rate 90 88 83 Respiratory 21 24 26 Rate Blood Pressure 93/85 100/46 (mmHg) O2 Sat by Pulse 92 94 95 Oximetry 03/26/19 03/26/19 03/26/19 03:30 03:45 04:00 Temperature 101.1 F 101.1 F 100.9 F Pulse Rate 82 85 87 Respiratory 28 21 27 Rate Blood Pressure 95/51 110/47 109/47 (mmHg) O2 Sat by Pulse 93 93 94 Oximetry 12/27/18 12/27/18 12/27/18 04:15 04:30 04:45 Temperature 100.9 F 100.9 F 100.6 F Pulse Rate 87 89 84 Respiratory 24 24 20 Rate Blood Pressure 89/47 98/56 109/50 (mmHg) O2 Sat by Pulse 94 95 94 Oximetry 12/27/18 12/27/18 12/27/18 05:00 05:15 05:45 Temperature 100.8 F 100.9 F 101.1 F Pulse Rate 85 87 89 Respiratory 22 22 23 Rate Blood Pressure 96/51 107/48 116/52 (mmHg) O2 Sat by Pulse 95 95 94 Oximetry 12/27/18 12/27/18 12/27/18 06:00 06:15 06:30 Temperature 100.9 F 100.9 F 100.9 F Pulse Rate 85 85 84 Respiratory 24 21 24 Rate Blood Pressure 112/54 119/47 105/54 (mmHg) O2 Sat by Pulse 95 96 96 Oximetry 12/27/18 12/27/18 12/27/18 06:45 07:00 07:15 Temperature 100.9 F 100.9 F 100.9 F Pulse Rate 86 87 85 Respiratory 21 35 21 Rate Blood Pressure 100/55 130/53 127/53 (mmHg) O2 Sat by Pulse 95 96 95 Oximetry 12/27/18 12/27/18 12/27/18 07:30 07:45 08:00 Temperature 100.9 F 100.9 F 100.9 F Pulse Rate 86 85 87 Respiratory 24 22 24 Rate Blood Pressure 137/51 121/60 117/57 (mmHg) O2 Sat by Pulse 96 95 95 Oximetry 12/27/18 08:30 Temperature 100.9 F Pulse Rate 80 Respiratory 22 Rate Blood Pressure 93/49 (mmHg) O2 Sat by Pulse 94 Oximetry Oxygen Devices in Use Now: Nasal Cannula - 2 liters Appearance: Pleasant obese gentleman sitting up in bed in NAD. Eyes: No Scleral Icterus Ears/Nose/Mouth/Throat: Mucous Membranes Moist Neck: Trachea Midline Respiratory: Symmetrical Chest Expansion and Respiratory Effort, - - BS+ bilaterally with crackles on the left, no wheezes Cardiovascular: RRR - Normal S1 and S2 Abdominal: NL Sounds; No Tenderness; No Distention - morbid obese Extremities: No Edema Neurological: Alert and Oriented x 3, NL Muscle Strength and Tone Lines/Tubes/Other Access: Clean, Dry and Intact Frazier Nutrition: Taking PO's Result Diagrams: 12/27/18 05:35 12/27/18 08:42 Microbiology and Other Data: Microbiology 12/26/18 22:05 Gram Stain - Final Sputum Expectorated 12/25/18 20:05 Nasal Screen MRSA (PCR) - Final Nasal Mrsa Not Detected 12/26/18 22:05 Legionella Urinary Antigen - Final Urine Negative Legionella Antigen Streptococcus pneumoniae Ag Screen - Final Negative S. pneumo Antigen 12/26/18 20:05 Influenza Types A,B Antigen - Final Nasal Specimen received for Influenza A/B Molecular testing 12/26/18 18:24 Influenza Types A,B Antigen - Final Nasopharyngeal Specimen received for Influenza A/B Molecular testing Assess/Plan/Problems-Billing Assessment: Mr Torres is a 68 yo M with PMH of HTN, BPH, type 2 DM, GERD, HLD, COPD, Afib , probable ROMERO, CKD stage 3, who presented to ED with malaise, cough, and chest pain, found to have severe sepsis secondary to pneumonia. - Patient Problems (1) Severe sepsis Comment: - Present on admission with tachycardia, tachypnea, leukocytosis, complicated by hypotension responsive to IVF. - Source is community acquired pneumonia. (2) Pneumonia Comment: - CxR showed KM infiltrate. - Blood and sputum culture show no growth so far. - Legionella and Pneumococcal Ag, are negative, as well as Flu. - Continue Ceftriaxone and Zithromax #2. - Diarrhea was present prior to antibiotics, probably associated with the primary infection. (3) ALLEN (acute kidney injury) Comment: - Likely pre-renal in the setting of poor oral intake and diuretic use. - Urinary sodium <18 and FeNa 0.3 with normal UA support pre-renal etiology. - Continue IVF and monitor UO. - Fluid balance 3.7 liters positive on 12/26/18. - Start Bicitra to buffer metabolic acidosis. (4) Chest pain Comment: - Serial trops are negative; no ischemic changes on EKG. - Pleuritic in nature, secondary to pneumonia. (5) Atrial fibrillation Comment: - In NSR at this time. - Renal function does not allow for NOAC use at this time. With his [id number] of 3, will continue Heparin drip. (6) Type II diabetes mellitus Comment: - A1c is 7.2. - Continue Lispro SS. (7) COPD (chronic obstructive pulmonary disease) Comment: - Stable. - Continue bronchodilators PRN and inhaled steroids. (8) BPH (benign prostatic hyperplasia) Comment: - Continue Tamsulosin and Finasteride. (9) DVT prophylaxis Comment: - Heparin drip. (10) Full code status Status and Disposition: Inpatient. Transfer out of ICU.
[2018-12-27 08:57] LABS: Potassium Redraw 5.1 mmol/L (3.5-5.0)
[2018-12-27] MEDS ORDERED: Apixaban* 5 MG TAB PO SCH (09:00)
[2018-12-27] MEDS: Insulin LISPRO* 1 UNITS UNIT SUBCUT SCH ×4 (09:26→20:26)
[2018-12-27] MEDS: NFT: Umeclidinium 62.5 MDI(NF) MDI INH SCH (09:38)
[2018-12-27] MEDS: CMCS: Saliva Substitute (NF) 1 SPRAY BTL MT SCH ×4 (11:40→23:46)
[2018-12-27] MEDS: Heparin DRIP 25,000 UNITS(*) 25,000 UNITS/500 ML BAG IV SCH (15:08)
[2018-12-27] MEDS: cefTRIAXone(*) 1 GM in NS 0.9% 50 ML* 50 ML IVPB SCH (17:48)
[2018-12-27] MEDS: Mometasone 220 MCG MDI INH SCH (19:20)
[2018-12-27] MEDS: Sodium Citrate/Citric Acid* 15 ML UDC PO SCH (20:24)
[2018-12-27] MEDS: Atorvastatin* 10 MG TAB PO SCH (20:24)
[2018-12-27] MEDS: Azithromycin IV(*) 500 MG in NS 0.9% 250 ML* 250 ML IVPB SCH (20:24)
[2018-12-27] MEDS: Tamsulosin CAP* 0.4 MG PO SCH (20:24)
[2018-12-28] MEDS: CMCS: Saliva Substitute (NF) 1 SPRAY BTL MT SCH ×5 (03:21→20:03)
[2018-12-28] MEDS: Lactated Ringers 1000 ML Bag* 1,000 ML IV SCH ×3 (03:42→18:11)
[2018-12-28] MEDS: Heparin DRIP 25,000 UNITS(*) 25,000 UNITS/500 ML BAG IV SCH (04:04)
[2018-12-28 05:45] LABS: ABS Basophils 0 10^3/ul (0-0.2); ABS Eosinophils 0.1 10^3/ul (0-0.6); ABS Lymphocytes 0.6 10^3/ul (1.0-4.8); ABS Neutrophils 10.3 10^3/ul (1.5-7.7); ABS Nucleated RBC 0 10^3/ul; Eosinophil % 0.5 %; Hematocrit 29 % (36-46); Hemoglobin 9.4 g/dL (14.0-18.0); Lymphocyte % 4.9 %; Mean Corpuscular HGB Conc 33 g/dL (31-36); Mean Corpuscular Hemoglobin 27 pg (27-31); Mean Corpuscular Volume 80 fL (80-94); Nucleated Red Blood Cells % 0; Platelet Count 146 10^3/uL (150-450); Red Blood Count 3.56 10^6 /uL (4.18-5.48); Red Cell Distribution Width 20 % (10.5-15); White Blood Count 11.9 10^3/uL (3.5-10.8)
[2018-12-28 06:08] LABS: BUN/Creatinine Ratio 17.8 (8-20); C Reactive Protein 355.45 mg/L (<8.01); Calcium 7.7 mg/dL (8.6-10.3); EGFR African American 22.5 (>60); EGFR Non-African American 18.6 (>60); Potassium 4.3 mmol/L (3.5-5.0)
[2018-12-28] MEDS: NFT: Umeclidinium 62.5 MDI(NF) MDI INH SCH (07:15)
[2018-12-28] MEDS: Vitamin B Complex TAB PO SCH (09:49)
[2018-12-28] MEDS: Finasteride TAB* 5 MG PO SCH (09:49)
[2018-12-28] MEDS: Gabapentin CAP(*) 300 MG PO SCH ×2 (09:49→20:04)
[2018-12-28] MEDS: Pantoprazole TAB * 40 MG TAB PO SCH (09:49)
[2018-12-28] MEDS: Sodium Citrate/Citric Acid* 15 ML UDC PO SCH ×2 (09:50→20:03)
[2018-12-28] MEDS: Enoxaparin(*) 150 MG/ML 1 ML SYRINGE SUBCUT SCH (09:52)
[2018-12-28] MEDS: Insulin LISPRO* 1 UNITS UNIT SUBCUT SCH ×4 (09:52→20:04)
[2018-12-28] MEDS: Acetaminophen TAB* 325 MG PO PRN ×2 (11:51→19:37)
[2018-12-28] MEDS ORDERED: Spiriva Inhaler DEVICE* 1 EACH DEVICE INH ONE ×2 (12:00)
[2018-12-28] MEDS: Tiotropium CAP.INH* CAP.INH/18 MCG (USE ORDER SET !) INH SCH (16:40)
--- NOTE | 2018-12-28 16:49 | PN ---
Subjective Date of Service: 12/28/18 Interval History: Feels good, no complaints. No shortness of breath, pain. +sputum. Afebrile. Family History: Unchanged from Admission Social History: Unchanged from Admission Past Medical History: Unchanged from Admission Objective Active Medications: Acetaminophen (Tylenol Tab*) 650 mg PO Q4H PRN PRN Reason: FEVER/HEADACHE Last Admin: 12/28/18 11:51 Dose: 650 mg Hydrocodone Bitart/Acetaminophen ([place] 5-325 Tab*) 1 tab PO Q4H PRN PRN Reason: PAIN Albuterol (Ventolin Hfa Inhaler*) 2 puff INH Q4HR PRN PRN Reason: SHORTNESS OF BREATH Albuterol (Ventolin 2.5 Mg/3 Ml Neb.Teetee*) 2.5 mg INH Q4H PRN PRN Reason: SOB/WHEEZING Atorvastatin Calcium (Lipitor*) 10 mg PO BEDTIME [facility] Last Admin: 12/27/18 20:24 Dose: 10 mg Citric Acid/Sodium Citrate (Bicitra*) 15 ml PO BID [facility] Last Admin: 12/28/18 09:50 Dose: 15 ml Dextrose (D50w Syringe 50 Ml*) 12.5 gm IV PUSH .FOR FS < 60 - SS PRN PRN Reason: FS < 60 Enoxaparin Sodium (Lovenox(*)) 120 mg SUBCUT DAILY@0800 [facility] Last Admin: 12/28/18 09:52 Dose: 120 mg Finasteride (Proscar Tab*) 5 mg PO DAILY [facility] Last Admin: 12/28/18 09:49 Dose: 5 mg Gabapentin (Neurontin Cap(*)) 300 mg PO BID [facility] Last Admin: 12/28/18 09:49 Dose: 300 mg Ceftriaxone Sodium 1 gm/ (Sodium Chloride) 50 mls @ 200 mls/hr IVPB Q24H [facility] Last Admin: 12/27/18 17:48 Dose: 200 mls/hr Azithromycin 500 mg/ Sodium (Chloride) 250 mls @ 250 mls/hr IVPB Q24H [facility] Last Admin: 12/27/18 20:24 Dose: 250 mls/hr Lactated Ringer's (Lactated Ringers 1000 Ml Bag*) 1,000 mls @ 150 mls/hr IV PER RATE [facility] Last Admin: 12/28/18 08:34 Dose: 150 mls/hr Insulin Human Lispro (Humalog*) 0 units SUBCUT ACHS [facility]; Protocol Last Admin: 12/28/18 11:40 Dose: Not Given Loperamide HCl (Imodium Cap*) 2 mg PO .SEE DIRECTIONS PRN PRN Reason: DIARRHEA Last Admin: 12/27/18 11:40 Dose: 2 mg Mometasone Furoate (Asmanex 220 Mcg Mdi *) 2 puff INH BEDTIME [facility] Last Admin: 12/27/18 19:20 Dose: 2 puff Pantoprazole Sodium (Protonix Tab*) 40 mg PO DAILY [facility] Last Admin: 12/28/18 09:49 Dose: 40 mg Saliva Substitute (Biotene Moisturizing Mouth (Nf)) 1 spray MT Q4H [facility]; Protocol Last Admin: 12/28/18 16:18 Dose: 1 spray Tamsulosin HCl (Flomax Cap*) 0.4 mg PO BEDTIME [facility] Last Admin: 12/27/18 20:24 Dose: 0.4 mg Tiotropium [place] (Spiriva Cap.Inh*) 1 cap INH DAILY [facility] Last Admin: 12/28/18 16:40 Dose: Not Given Vitamin B Complex/Vitamin E (B Complex-50*) 1 tab PO DAILY [facility] Last Admin: 12/28/18 09:49 Dose: 1 tab Vital Signs - 8 hr 12/28/18 12/28/18 12/28/18 09:49 11:23 12:35 Temperature 98.2 F Pulse Rate 81 Respiratory 16 24 18 Rate Blood Pressure 147/60 (mmHg) O2 Sat by Pulse 94 Oximetry 12/28/18 14:15 Temperature 98 F Pulse Rate 74 Respiratory 18 Rate Blood Pressure 140/68 (mmHg) O2 Sat by Pulse 96 Oximetry Oxygen Devices in Use Now: None Appearance: alert, sitting on edge of bed appears well Eyes: No Scleral Icterus Ears/Nose/Mouth/Throat: NL Teeth, Lips, Gums Neck: NL Appearance and Movements; NL JVP Respiratory: Symmetrical Chest Expansion and Respiratory Effort, - - few scattered rhonchi Cardiovascular: NL Sounds; No Murmurs; No JVD, RRR Abdominal: NL Sounds; No Tenderness; No Distention Lymphatic: No Cervical Adenopathy Extremities: - - 2+ edema b/l Neurological: Alert and Oriented x 3 Result Diagrams: 12/28/18 05:24 12/28/18 05:24 Microbiology and Other Data: Microbiology 12/26/18 22:05 Gram Stain - Final Sputum Expectorated 12/25/18 20:05 Nasal Screen MRSA (PCR) - Final Nasal Mrsa Not Detected 12/26/18 22:05 Legionella Urinary Antigen - Final Urine Negative Legionella Antigen Streptococcus pneumoniae Ag Screen - Final Negative S. pneumo Antigen 12/26/18 20:05 Influenza Types A,B Antigen - Final Nasal Specimen received for Influenza A/B Molecular testing 12/26/18 18:24 Influenza Types A,B Antigen - Final Nasopharyngeal Specimen received for Influenza A/B Molecular testing Assess/Plan/Problems-Billing Assessment: Mr Torres is a 68 yo M with PMH of HTN, BPH, type 2 DM, GERD, HLD, COPD, Afib , probable ROMERO, CKD stage 3, who presented to ED with malaise, cough, and chest pain, found to have severe sepsis secondary to pneumonia. - Patient Problems (1) Streptococcal pneumonia Current Visit: Yes Status: Acute Code(s): J15.4 - PNEUMONIA DUE TO OTHER STREPTOCOCCI SNOMED Code(s): 48654204 Comment: continue ceftriaxone and azithromycin (day 3) sepsis resolved (2) Hypoxia Current Visit: No Status: Acute Code(s): R09.02 - HYPOXEMIA SNOMED Code(s) : 084970237 Comment: Has o2 at home, wears it only nocturnally May have amb pulse ox tomorrow to see if he needs it walking (3) Stage III chronic kidney disease Current Visit: No Status: Acute Code(s): N18.3 - CHRONIC KIDNEY DISEASE, STAGE 3 (MODERATE) SNOMED Code(s): 780835630 Comment: ALLEN on CKD Likely related to sepsis, improving after volume resuscitation (4) Atrial fibrillation Current Visit: Yes Status: Acute Code(s): I48.91 - UNSPECIFIED ATRIAL FIBRILLATION SNOMED Code(s): 74890618 Comment: In NSR at this time. Xarelto on hold due to ALLEN therapeutic lovenox started due to high [id number]
[2018-12-28 18:02] LABS: BUN/Creatinine Ratio 19.7 (8-20); Calcium 8.3 mg/dL (8.6-10.3); EGFR African American 29.2 (>60); EGFR Non-African American 24.1 (>60); Potassium 4.3 mmol/L (3.5-5.0)
[2018-12-28] MEDS: cefTRIAXone(*) 1 GM in NS 0.9% 50 ML* 50 ML IVPB SCH (18:13)
[2018-12-28] MEDS: Azithromycin IV(*) 500 MG in NS 0.9% 250 ML* 250 ML IVPB SCH (19:39)
[2018-12-28] MEDS: Atorvastatin* 10 MG TAB PO SCH (20:04)
[2018-12-28] MEDS: Tamsulosin CAP* 0.4 MG PO SCH (20:04)
[2018-12-29] MEDS: Mometasone 220 MCG MDI INH SCH
[2018-12-29] MEDS: CMCS: Saliva Substitute (NF) 1 SPRAY BTL MT SCH ×4 (00:35→11:53)
[2018-12-29] MEDS: Lactated Ringers 1000 ML Bag* 1,000 ML IV SCH ×2 (02:38→10:30)
[2018-12-29] MEDS: Insulin LISPRO* 1 UNITS UNIT SUBCUT SCH ×2 (07:46→13:07)
[2018-12-29] MEDS: Enoxaparin(*) 150 MG/ML 1 ML SYRINGE SUBCUT SCH (07:56)
[2018-12-29] MEDS: Gabapentin CAP(*) 300 MG PO SCH (07:58)
[2018-12-29] MEDS: Sodium Citrate/Citric Acid* 15 ML UDC PO SCH (07:58)
[2018-12-29] MEDS: Pantoprazole TAB * 40 MG TAB PO SCH (07:58)
[2018-12-29] MEDS: Finasteride TAB* 5 MG PO SCH (07:59)
[2018-12-29 08:20] LABS: ABS Basophils 0 10^3/ul (0-0.2); ABS Eosinophils 0.1 10^3/ul (0-0.6); ABS Lymphocytes 0.5 10^3/ul (1.0-4.8); ABS Monocytes 0.6 10^3/ul (0-0.8); ABS Neutrophils 6.9 10^3/ul (1.5-7.7); ABS Nucleated RBC 0 10^3/ul; Eosinophil % 1.3 %; Hematocrit 28 % (36-46); Hemoglobin 9.4 g/dL (14.0-18.0); Lymphocyte % 5.8 %; Mean Corpuscular HGB Conc 34 g/dL (31-36); Mean Corpuscular Hemoglobin 27 pg (27-31); Mean Corpuscular Volume 80 fL (80-94); Mean Platelet Volume 7.7 fL (7.4-10.4); Nucleated Red Blood Cells % 0.1; Platelet Count 164 10^3/uL (150-450); Red Blood Count 3.45 10^6 /uL (4.18-5.48); Red Cell Distribution Width 20 % (10.5-15); White Blood Count 8.1 10^3/uL (3.5-10.8)
[2018-12-29] MEDS: Tiotropium CAP.INH* CAP.INH/18 MCG (USE ORDER SET !) INH SCH (11:44)
[2018-12-29] MEDS: Vitamin B Complex TAB PO SCH (11:53)
[2018-12-29 12:44] VITALS: BP 143/66
--- NOTE | 2018-12-29 22:08 | DS ---
CC: Dr. Browne * DISCHARGE SUMMARY: DATE OF ADMISSION: DATE OF DISCHARGE: 12/29/18 HISTORY OF PRESENT ILLNESS: This 68-year-old man came complaining of shortness of breath and cough. He was found to have sepsis and community-acquired pneumonia. Chest x-ray showed a left lung consolidation. The patient was treated with ceftriaxone and azithromycin. He did not get glucocorticoids, initially was monitored in the intensive care unit. DISCHARGE DIAGNOSES: 1. Pneumonia. 2. Chronic obstructive pulmonary disease. 3. Diabetes. 4. Renal failure, improved. 5. Chronic atrial fibrillation. 6. Hypertension. 7. Gastroesophageal reflux disease. 8. Hyperlipidemia. 9. Obstructive sleep apnea, on CPAP. DISCHARGE MEDICATIONS: 1. Apixaban 5 mg b.i.d. 2. Azithromycin 250 mg daily for 3 days. 3. Cefuroxime 500 mg b.i.d. for 5 days. 4. Tamsulosin 0.4 mg h.s. 5. Omeprazole 20 mg daily. 6. Metformin 1000 mg b.i.d. 7. Finasteride 5 mg daily. 8. Gabapentin 300 mg b.i.d. 9. Cetirizine 10 mg daily. 10. Albuterol 2 puffs every 4 hours p.r.n. 11. Atorvastatin 10 mg h.s. 12. Atenolol 50 mg daily. 13. Mupirocin 2% cream as prescribed. 14. Umeclidinium 62.5 mcg multi-dose inhaler daily. 15. Fluticasone HFA 110 mcg 2 puffs twice daily. 16. Vitamin B complex daily. 17. Acetaminophen as prescribed. 18. Glucosamine 1500 mg b.i.d. 19. Magnesium oxide 400 mg daily. 20. Potassium chloride 10 mEq daily. 21. Torsemide 20 mg daily. 22. Lisinopril 10 mg daily. CONDITION ON DISCHARGE: Improved. DISPOSITION ON DISCHARGE: Discharged home with basic metabolic profile in 2 days. [id number]/[facility] #: [id number] [facility]
== END 2018-12-29 14:35 | disposition home or self-care (01) | DRG 871 ==
LOC: ED 17:28 → ICU 19:05 → MEDTELE 12-27 08:34
PROVIDERS: ADMIT Internal Medicine; ATTEND Internal Medicine
PROC: 5A09357 Assistance with Respiratory Ventilation, Less than 24 Consecutive Hours, Continuous Positive Airway Pressure (ICD-10-PCS; principal; 2018-12-27)
DX: A41.9 Sepsis, unspecified organism (principal); J13 Pneumonia due to Streptococcus pneumoniae; J44.0 Chronic obstructive pulmonary disease with (acute) lower respiratory infection; N17.9 Acute kidney failure, unspecified; E87.1 Hypo-osmolality and hyponatremia; E87.2 Acidosis; I95.9 Hypotension, unspecified; E11.21 Type 2 diabetes mellitus with diabetic nephropathy; I48.2 Chronic atrial fibrillation; E11.22 Type 2 diabetes mellitus with diabetic chronic kidney disease; Z99.81 Dependence on supplemental oxygen; E86.0 Dehydration; N18.3 Chronic kidney disease, stage 3 (moderate); R65.20 Severe sepsis without septic shock; G47.33 Obstructive sleep apnea (adult) (pediatric); I12.9 Hypertensive chronic kidney disease with stage 1 through stage 4 chronic kidney disease, or unspecified chronic kidney disease; R07.9 Chest pain, unspecified; E78.5 Hyperlipidemia, unspecified; R09.02 Hypoxemia; E66.9 Obesity, unspecified; N40.0 Benign prostatic hyperplasia without lower urinary tract symptoms; K21.9 Gastro-esophageal reflux disease without esophagitis; Z68.39 Body mass index [BMI] 39.0-39.9, adult; Z79.01 Long term (current) use of anticoagulants; Z79.84 Long term (current) use of oral hypoglycemic drugs; Z79.1 Long term (current) use of non-steroidal anti-inflammatories (NSAID); Z79.51 Long term (current) use of inhaled steroids; Z79.899 Other long term (current) drug therapy; Z87.891 Personal history of nicotine dependence
CPT/HCPCS: 36415; 71046; 80048; 80053; 81003; 82553; 82570; 83036; 83605; 83880; 84300; 84484; 85025; 85730; 86140; 87040; 87070; 87077; 87184; 87186; 87205; 87641; 87899; 93005; 94640; 94660; 99284; A9270-GY; J0456; J0696; J1644; J1650

== ENCOUNTER 2021-10-25 10:13 | Inpatient (IN) ==
[2021-10-25 11:38] LABS: ABS Basophils 0.1 10^3/ul (0-0.2); ABS Lymphocytes 0.7 10^3/ul (1.0-4.8); ABS Monocytes 0.6 10^3/ul (0-0.8); ABS Neutrophils 5.1 10^3/ul (1.5-7.7); Eosinophil % 0.3 %; Hematocrit 39 % (42-52); Hemoglobin 13.5 g/dL (14.0-18.0); Lymphocyte % 10.5 %; Mean Corpuscular HGB Conc 34 g/dL (31-36); Mean Corpuscular Hemoglobin 30 pg (27-31); Mean Corpuscular Volume 86 fL (80-94); Mean Platelet Volume 8.2 fL (7.4-10.4); Platelet Count 193 10^3/uL (150-450); Red Blood Count 4.55 10^6 /uL (4.18-5.48); Red Cell Distribution Width 14 % (10-15); White Blood Count 6.4 10^3/uL (3.5-10.8)
[2021-10-25 11:44] LABS: INR 1.19 (0.86-1.15)
[2021-10-25 11:56] LABS: Troponin I 0.01 ng/mL (<0.03)
[2021-10-25 11:59] LABS: Albumin 3.7 g/dL (3.2-5.2); Albumin/Globulin Ratio 1.2 (1-3); Calcium 8.2 mg/dL (8.6-10.3); Potassium 4.2 mmol/L (3.5-5.0); Total Bilirubin 0.5 mg/dL (0.2-1.0); Total Protein 6.7 g/dL (6.4-8.9); eGFR CKD-EPI 43.9 (>60)
[2021-10-25] MEDS ORDERED: Iodixanol (CONTRAST) 320 MG/ML 100 ML SDV IV ONE (12:05)
[2021-10-25] MEDS ORDERED: NS 0.9% 1000 ml BAG 1,000 ML IV SCH (14:00)
[2021-10-25] MEDS ORDERED: Dextrose 50% Syringe 50 ml 25 GM/50 ML SYRINGE IV PUSH PRN (14:57)
[2021-10-25] MEDS ORDERED: Al Hydrox/Mg Hydrox/Simet LIQ 30 ML UDC PO PRN (15:00)
[2021-10-25] MEDS ORDERED: Albuterol 2.5mg/3 ml (0.083%) NEB.SOLN INH PRN (15:06)
[2021-10-25] MEDS: Chlorhexidine MOUTHWASH 0.12% 15 ML UDC SWISH SPIT SCH (21:17)
[2021-10-25] MEDS: Fluticasone NASAL SPRAY 50MCG 16 gm SPRAY BTL INTRANASAL SCH (21:17)
[2021-10-26 06:32] LABS: ABS Eosinophils 0.1 10^3/ul (0-0.6); ABS Lymphocytes 0.8 10^3/ul (1.0-4.8); ABS Monocytes 0.6 10^3/ul (0-0.8); ABS Neutrophils 4.3 10^3/ul (1.5-7.7); Eosinophil % 1.4 %; Hematocrit 40 % (42-52); Hemoglobin 13.5 g/dL (14.0-18.0); Lymphocyte % 14.5 %; Mean Corpuscular HGB Conc 34 g/dL (31-36); Mean Corpuscular Hemoglobin 30 pg (27-31); Mean Corpuscular Volume 88 fL (80-94); Mean Platelet Volume 8.3 fL (7.4-10.4); Nucleated Red Blood Cells % 0.1; Platelet Count 181 10^3/uL (150-450); Red Blood Count 4.59 10^6 /uL (4.18-5.48); Red Cell Distribution Width 14 % (10-15); White Blood Count 5.8 10^3/uL (3.5-10.8)
[2021-10-26 06:46] LABS: Calcium 7.8 mg/dL (8.6-10.3); HDL Cholesterol 31.9 mg/dL; eGFR CKD-EPI 44.5 (>60)
[2021-10-26] MEDS: Fluticasone NASAL SPRAY 50MCG 16 gm SPRAY BTL INTRANASAL SCH ×2 (08:21→21:06)
[2021-10-26] MEDS: Chlorhexidine MOUTHWASH 0.12% 15 ML UDC SWISH SPIT SCH ×3 (08:21→21:06)
[2021-10-26] MEDS: Tiotropium Brom/Olodaterol MDI INH SCH (08:25)
[2021-10-26 15:35] LABS: Folate > 20.00 ng/mL (5.90-24.80)
[2021-10-26 15:36] LABS: Vitamin B12 645 pg/mL (180-914)
[2021-10-26 23:42] LABS: Calcium 8.2 mg/dL (8.6-10.3); Magnesium 1.9 mg/dL (1.9-2.7); Potassium 3.9 mmol/L (3.5-5.0); eGFR CKD-EPI 40.9 (>60)
[2021-10-27 05:07] LABS: Hematocrit 40 % (42-52); Hemoglobin 13.6 g/dL (14.0-18.0); Mean Corpuscular HGB Conc 34 g/dL (31-36); Mean Corpuscular Hemoglobin 30 pg (27-31); Mean Corpuscular Volume 87 fL (80-94); Platelet Count 192 10^3/uL (150-450); Red Blood Count 4.59 10^6 /uL (4.18-5.48); Red Cell Distribution Width 15 % (10-15); White Blood Count 5.7 10^3/uL (3.5-10.8)
[2021-10-27 05:27] LABS: Potassium 3.9 mmol/L (3.5-5.0); eGFR CKD-EPI 45.6 (>60)
[2021-10-27] MEDS: Tiotropium Brom/Olodaterol MDI INH SCH (07:44)
[2021-10-27 09:11] LABS: TSH Ultra Thyroid Stim Horm 3.02 mcIU/mL (0.34-5.60)
[2021-10-27] MEDS: Fluticasone NASAL SPRAY 50MCG 16 gm SPRAY BTL INTRANASAL SCH (09:59)
[2021-10-27] MEDS: Chlorhexidine MOUTHWASH 0.12% 15 ML UDC SWISH SPIT SCH (10:00)
[2021-10-27 19:45] VITALS: BP 123/56
[2021-10-29 12:25] LABS: Albumin 2.8 g/dL (3.4-4.7); Albumin/Globulin Ratio 0.91; Gamma Globulin 0.9 g/dL (0.6-1.6); Total Protein(PEP) 5.8 g/dL (6.3 - 7.9)
== END 2021-10-27 16:55 | disposition home or self-care (01) | DRG 65 ==
LOC: EDHOLD 10:13 → ED 10:13 → MEDTELE 18:38
PROVIDERS: ADMIT Internal Medicine; ATTEND Internal Medicine

== ENCOUNTER 2024-01-15 19:22 | Observation (INO) ==
[2024-01-15 20:47] LABS: ABS Lymphocytes 0.7 10^3/uL (1.0-4.8); ABS Monocytes 0.5 10^3/uL (0.0-1.1); ABS Neutrophils 5.8 10^3/uL (1.5-7.6); ABS Nucleated RBC 0.01 10^3/ul; Eosinophil % 0.3 %; Hematocrit 37.7 % (38-53); Hemoglobin 12.9 g/dL (13.2-16.3); Lymphocyte % 10.5 %; Mean Corpuscular Hemoglobin 29.4 pg (27-33); Mean Corpuscular Hgb Conc 34.2 g/dL (31-36); Mean Corpuscular Volume 85.9 fL (80-97); Mean Platelet Volume 7.9 fL (7.5-11.2); Nucleated Red Blood Cells % 0.1 %/100WBC (0.0-0.8); Platelet Count 185 10^3/uL (150-450); Red Blood Count 4.38 10^6/uL (4.06-5.63); Red Cell Distribution Width 17.9 % (12-17); White Blood Count 7.1 10^3/uL (3.6-10.2)
[2024-01-15 20:54] LABS: INR 1.54 (0.83-1.13)
[2024-01-15 21:13] LABS: Albumin 3.7 g/dL (3.2-5.2); Albumin/Globulin Ratio 1.6 (1-3); Calcium 7.7 mg/dL (8.6-10.3); Creatinine, Serum 2.52 mg/dL (0.67-1.17); Globulin 2.3 g/dL (2-4); Potassium 3.3 mmol/L (3.5-5.0); Total Bilirubin 0.5 mg/dL (0.2-1.0); eGFR CKD-EPI 25.9 (>60)
[2024-01-15 22:55] LABS: High Sensitivity Troponin 1 Hr 7 pg/mL (<20)
[2024-01-15] MEDS: Potassium Chlor 20 meq TAB.ER PO ONE (23:07)
[2024-01-15 23:28] LABS: Magnesium 2.2 mg/dL (1.9-2.7)
[2024-01-15 23:44] LABS: TSH Ultra Thyroid Stim Horm 2.99 mcIU/mL (0.34-5.60)
[2024-01-16] MEDS: NS 0.9% 1000 ml BAG 1,000 ML IV ONE (01:01)
[2024-01-16] MEDS ORDERED: Ondansetron 4 mg VIAL 2 MG/ML 2 ml VIAL IV PRN (03:12)
[2024-01-16] MEDS ORDERED: Albuterol/Ipratropium NEB.SOL (2.5/0.5 MG) 3 ML NEB.SOLN INH PRN (05:15)
[2024-01-16] MEDS ORDERED: Albuterol 2.5mg/3 ml (0.083%) NEB.SOLN INH PRN (05:15)
[2024-01-16] MEDS ORDERED: Mometasone 220 MCG MDI INH PRN (05:45)
[2024-01-16 07:33] LABS: Urine Appearance Clear; Urine Bilirubin Negative (Negative); Urine Blood Negative (Negative); Urine Color Light-Yellow; Urine Glucose Trace (Negative); Urine Ketones Negative (Negative); Urine Nitrite 2+ (Negative); Urine Protein Negative (Negative); Urine Specific Gravity 1.011 (1.002-1.030); Urine Urobilinogen Negative (Negative)
[2024-01-16 07:42] LABS: Urine Bacteria 1+ /HPF (Absent); Urine Red Blood Cell Trace(0-2/hpf) /HPF (0-Trace); Urine White Blood Cell 3+(>20/hpf) /HPF (0-Trace)
[2024-01-16 07:45] LABS: ABS Lymphocytes 0.7 10^3/uL (1.0-4.8); ABS Monocytes 0.5 10^3/uL (0.0-1.1); ABS Neutrophils 5.6 10^3/uL (1.5-7.6); ABS Nucleated RBC 0.01 10^3/ul; Eosinophil % 0.3 %; Hematocrit 36.6 % (38-53); Hemoglobin 12.2 g/dL (13.2-16.3); Lymphocyte % 9.9 %; Mean Corpuscular Hgb Conc 33.3 g/dL (31-36); Mean Corpuscular Volume 87.2 fL (80-97); Mean Platelet Volume 8.2 fL (7.5-11.2); Nucleated Red Blood Cells % 0.2 %/100WBC (0.0-0.8); Platelet Count 163 10^3/uL (150-450); Red Blood Count 4.19 10^6/uL (4.06-5.63); White Blood Count 6.8 10^3/uL (3.6-10.2)
[2024-01-16 08:23] LABS: Albumin 3.6 g/dL (3.2-5.2); Albumin/Globulin Ratio 1.8 (1-3); Calcium 7.2 mg/dL (8.6-10.3); Creatinine, Serum 2.57 mg/dL (0.67-1.17); Magnesium 2.2 mg/dL (1.9-2.7); Potassium 3.4 mmol/L (3.5-5.0); Total Bilirubin 0.5 mg/dL (0.2-1.0); Total Protein 5.6 g/dL (6.4-8.9); eGFR CKD-EPI 25.3 (>60)
[2024-01-16] MEDS: Potassium Chlor 10 meq TAB PO SCH (09:27)
[2024-01-16] MEDS: Potassium Chlor 20 meq TAB.ER PO ONE (09:38)
[2024-01-16] MEDS: Ammonium Lactate 12% 1 APPLIC TUBE TOPICAL SCH (09:39)
[2024-01-16] MEDS: Fluticasone NASAL SPRAY 50MCG 16 gm SPRAY BTL INTRANASAL SCH (09:39)
[2024-01-16] MEDS: Tiotropium Brom/Olodaterol MDI (ACUTE) INH SCH (11:53)
[2024-01-16] MEDS: Insulin GLARGINE 100 un/ml 10 ml VIAL SUBCUT SCH (11:53)
[2024-01-16 15:29] VITALS: BP 122/85
[2024-01-16] MEDS ORDERED: Insulin GLARGINE 100 un/ml 10 ml VIAL SUBCUT SCH (21:00)
== END 2024-01-16 15:20 | disposition home or self-care (01) ==
LOC: ED 19:22 → EDHOLD 19:22 → SUATTDRO 01-16 03:12 → MEDTELE 01-16 11:32
PROVIDERS: ADMIT Hospitalist; ATTEND Internal Medicine Hematology & Oncology

== ENCOUNTER 2024-08-29 15:55 | Inpatient (IN) ==
[2024-08-29] MEDS: Albuterol/Ipratropium NEB.SOL (2.5/0.5 MG) 3 ML NEB.SOLN INH ONE (16:36)
[2024-08-29 16:54] LABS: Hematocrit 21.3 % (38-53); Hemoglobin 7.2 g/dL (13.2-16.3); Mean Corpuscular Hemoglobin 28.5 pg (27-33); Mean Platelet Volume 7.8 fL (7.5-11.2); Platelet Count 334 10^3/uL (150-450); Red Blood Count 2.54 10^6/uL (4.06-5.63); Red Cell Distribution Width 17.5 % (12-17)
[2024-08-29 16:58] LABS: INR 1.63 (0.85-1.14)
[2024-08-29 17:10] LABS: Albumin 3.7 g/dL (3.2-5.2); Albumin/Globulin Ratio 1.7 (1-3); C Reactive Protein 32.6 mg/L (<8.01); Calcium 8.7 mg/dL (8.6-10.3); Creatinine, Serum 2.69 mg/dL (0.67-1.17); Globulin 2.2 g/dL (2-4); Total Bilirubin 0.5 mg/dL (0.2-1.0); Total Protein 5.9 g/dL (6.4-8.9); eGFR CKD-EPI 23.8 (>60)
[2024-08-29 17:33] LABS: ABS Lymphocytes 0.3 10^3/uL (1.0-4.8); ABS Monocytes 0.3 10^3/uL (0.0-1.1); ABS Neutrophils 10.3 10^3/uL (1.5-7.6); ABS Nucleated RBC 0.04 10^3/ul; Anisocytosis 1+; Nucleated Red Blood Cells % 0.3 %/100WBC (0.0-0.8); Polychromasia 2+; Target Cells 1+
[2024-08-29 18:13] LABS: High Sensitivity Troponin 1 Hr 6 pg/mL (<20)
[2024-08-29 21:31] LABS: Urine Appearance Clear; Urine Bilirubin Negative (Negative); Urine Blood Negative (Negative); Urine Color Colorless; Urine Glucose 4+ (>=1000 mg/dL) (Negative); Urine Ketones Negative (Negative); Urine Nitrite Negative (Negative); Urine Protein Negative (Negative); Urine Specific Gravity 1.009 (1.002-1.030); Urine Urobilinogen Negative (Negative); Urine pH 5.5 (5.0-8.0)
[2024-08-29] MEDS ORDERED: Sulfur Hexaflouride MICROSPHR 25 MG VIAL IV PRN (21:40)
[2024-08-29] MEDS ORDERED: Albuterol/Ipratropium NEB.SOL (2.5/0.5 MG) 3 ML NEB.SOLN INH PRN (21:44)
[2024-08-29] MEDS ORDERED: Albuterol HFA INHALER 8 gm MDI INH PRN (21:44)
[2024-08-29] MEDS: NS 0.9% 1000 ml BAG 1,000 ML IV SCH (22:13)
[2024-08-29] MEDS ORDERED: Clotrimazole 1% CREAM 30 gm TOPICAL PRN (22:14)
[2024-08-29 23:21] LABS: Ferritin 34.1 ng/mL (24-336)
[2024-08-29 23:25] LABS: Folate 17.54 ng/mL (5.90-24.80)
[2024-08-29] MEDS ORDERED: Dextrose 50% Syringe 50 ml 25 GM/50 ML SYRINGE IV PUSH PRN (23:34)
[2024-08-30 04:45] LABS: Hematocrit 21.4 % (38-53); Hemoglobin 7.2 g/dL (13.2-16.3); Mean Corpuscular Hemoglobin 27.8 pg (27-33); Mean Corpuscular Hgb Conc 33.4 g/dL (31-36); Mean Corpuscular Volume 83.1 fL (80-97); Mean Platelet Volume 7.9 fL (7.5-11.2); Platelet Count 257 10^3/uL (150-450); Red Blood Count 2.57 10^6/uL (4.06-5.63); Red Cell Distribution Width 17.6 % (12-17); White Blood Count 8.2 10^3/uL (3.6-10.2)
[2024-08-30 04:56] LABS: Calcium 8.3 mg/dL (8.6-10.3); Creatinine, Serum 2.61 mg/dL (0.67-1.17); Magnesium 2.3 mg/dL (1.9-2.7); Potassium 3.3 mmol/L (3.5-5.0); eGFR CKD-EPI 24.7 (>60)
[2024-08-30 05:58] LABS: ABS Lymphocytes 0.6 10^3/uL (1.0-4.8); ABS Monocytes 0.6 10^3/uL (0.0-1.1); ABS Nucleated RBC 0.06 10^3/ul; Eosinophil % 0.1 %; Lymphocyte % 7.5 %; Nucleated Red Blood Cells % 0.8 %/100WBC (0.0-0.8)
[2024-08-30] MEDS: Potassium Chlor 20 meq TAB.ER PO SCH (08:14)
[2024-08-30] MEDS: Tiotropium Brom/Olodaterol MDI (ACUTE) INH SCH (08:15)
[2024-08-30] MEDS: CMCS: Febuxostat 40 mg TAB (NF) PO SCH (08:15)
[2024-08-30] MEDS: Fluticasone NASAL SPRAY 50MCG 16 gm SPRAY BTL INTRANASAL SCH (08:15)
[2024-08-30] MEDS: Amiodarone 400 mg TAB PO SCH (08:15)
[2024-08-30] MEDS ORDERED: TIRZEPATIDE 10 MG/0.5 ML SUBCUT SCH (09:00)
[2024-08-30] MEDS: Pantoprazole 80 mg in NS BAG 80 MG/250 ML BAG IV SCH (10:39)
[2024-08-30 14:14] LABS: Hematocrit 26.6 % (38-53)
[2024-08-30] MEDS ORDERED: Propofol 10 MG/ML 20 ML BTL ONE (14:18)
[2024-08-30 20:24] LABS: Hematocrit 25.8 % (38-53); Hemoglobin 8.7 g/dL (13.2-16.3)
[2024-08-31] MEDS ORDERED: Triamcinolone 0.5% OINT 1 TUBE TOPICAL SCH (05:00)
[2024-08-31 06:20] LABS: ABS Basophils 0.1 10^3/uL (0.0-0.1); ABS Lymphocytes 0.4 10^3/uL (1.0-4.8); ABS Monocytes 0.6 10^3/uL (0.0-1.1); ABS Neutrophils 7.5 10^3/uL (1.5-7.6); ABS Nucleated RBC 0.04 10^3/ul; Eosinophil % 0.3 %; Hematocrit 26.9 % (38-53); Hemoglobin 8.8 g/dL (13.2-16.3); Lymphocyte % 4.6 %; Mean Corpuscular Hemoglobin 27.5 pg (27-33); Mean Corpuscular Hgb Conc 32.8 g/dL (31-36); Mean Platelet Volume 7.8 fL (7.5-11.2); Nucleated Red Blood Cells % 0.4 %/100WBC (0.0-0.8); Platelet Count 259 10^3/uL (150-450); Red Cell Distribution Width 17.1 % (12-17); White Blood Count 8.5 10^3/uL (3.6-10.2)
[2024-08-31 06:57] LABS: Calcium 8.5 mg/dL (8.6-10.3); Creatinine, Serum 2.36 mg/dL (0.67-1.17); Magnesium 2.2 mg/dL (1.9-2.7); Potassium 3.8 mmol/L (3.5-5.0); eGFR CKD-EPI 27.8 (>60)
[2024-08-31] MEDS: Triamcinolone 0.5% OINT 1 TUBE TOPICAL SCH (08:58)
[2024-08-31] MEDS: Pantoprazole VIAL 40 MG VIAL IV SCH (08:58)
[2024-08-31] MEDS: Ammonium Lactate 12% 1 APPLIC TUBE TOPICAL SCH (11:51)
[2024-08-31] MEDS: PEG 3000 GI LAVAGE 1 GALLON PO ONE (12:31)
[2024-08-31] MEDS: Ferric Gluconate IV 250 MG in NS 0.9% 250 ml 200 ML IVPB SCH (13:37)
[2024-08-31 16:46] LABS: Calcium 8.5 mg/dL (8.6-10.3); Creatinine, Serum 2.23 mg/dL (0.67-1.17); Potassium 3.8 mmol/L (3.5-5.0); eGFR CKD-EPI 29.8 (>60)
[2024-09-01 06:23] LABS: ABS Lymphocytes 0.3 10^3/uL (1.0-4.8); ABS Monocytes 0.4 10^3/uL (0.0-1.1); ABS Neutrophils 5.9 10^3/uL (1.5-7.6); ABS Nucleated RBC 0.03 10^3/ul; Eosinophil % 0.4 %; Hematocrit 26.4 % (38-53); Hemoglobin 8.7 g/dL (13.2-16.3); Lymphocyte % 4.7 %; Mean Corpuscular Hemoglobin 27.9 pg (27-33); Mean Corpuscular Hgb Conc 33.1 g/dL (31-36); Mean Corpuscular Volume 84.1 fL (80-97); Mean Platelet Volume 7.9 fL (7.5-11.2); Nucleated Red Blood Cells % 0.4 %/100WBC (0.0-0.8); Platelet Count 223 10^3/uL (150-450); Red Blood Count 3.14 10^6/uL (4.06-5.63); Red Cell Distribution Width 17.3 % (12-17); White Blood Count 6.6 10^3/uL (3.6-10.2)
[2024-09-01 06:39] LABS: Calcium 8.5 mg/dL (8.6-10.3); Creatinine, Serum 2.15 mg/dL (0.67-1.17); Magnesium 2.3 mg/dL (1.9-2.7); Potassium 3.3 mmol/L (3.5-5.0); eGFR CKD-EPI 31.1 (>60)
[2024-09-01] MEDS: Potassium Chlor 20 meq TAB.ER PO SCH (08:58)
[2024-09-01] MEDS ORDERED: Propofol 10 MG/ML 20 ML BTL ONE (11:51)
[2024-09-01] MEDS ORDERED: Phenylephrine 40 mcg/mL 10mL (400mcg) SYRINGE ONE (12:50)
[2024-09-01] MEDS ORDERED: Potassium Chlor 20 meq TAB.ER PO ONE (15:00)
[2024-09-01 16:51] VITALS: BP 132/85
== END 2024-09-01 16:25 | disposition home or self-care (01) | DRG 812 ==
LOC: ED 15:55 → SUATTDRO 20:39 → INTOOBSV 20:39 → EDHOLD 20:39 → MEDTELE 08-30 08:54 → UNDODISIN 09-01 14:40
PROVIDERS: ADMIT Internal Medicine; ATTEND Internal Medicine
PROC: O.GIEGD (2024-08-30 14:50)

== ENCOUNTER 2024-09-12 12:54 | Inpatient (IN) ==
[2024-09-12 14:42] LABS: ABS Lymphocytes 0.3 10^3/uL (1.0-4.8); ABS Monocytes 0.3 10^3/uL (0.0-1.1); ABS Neutrophils 4.6 10^3/uL (1.5-7.6); Eosinophil % 0.5 %; Hematocrit 26.1 % (38-53); Hemoglobin 8.6 g/dL (13.2-16.3); Lymphocyte % 6.5 %; Mean Corpuscular Hemoglobin 26.9 pg (27-33); Mean Corpuscular Volume 81.6 fL (80-97); Mean Platelet Volume 7.9 fL (7.5-11.2); Nucleated Red Blood Cells % 0.1 %/100WBC (0.0-0.8); Platelet Count 205 10^3/uL (150-450); Red Blood Count 3.19 10^6/uL (4.06-5.63); Red Cell Distribution Width 17.9 % (12-17); White Blood Count 5.3 10^3/uL (3.6-10.2)
[2024-09-12 15:05] LABS: Urine Appearance Clear; Urine Bilirubin Negative (Negative); Urine Blood Negative (Negative); Urine Color Colorless; Urine Glucose Negative (Negative); Urine Ketones Negative (Negative); Urine Nitrite Negative (Negative); Urine Protein Negative (Negative); Urine Specific Gravity 1.009 (1.002-1.030); Urine Urobilinogen Negative (Negative)
[2024-09-12 15:10] LABS: Urine Bacteria 1+ /HPF (Absent); Urine Red Blood Cell Trace(0-2/hpf) /HPF (0-Trace); Urine Squamous Epithelial Cell Present /HPF (Absent); Urine White Blood Cell 1+(6-10/hpf) /HPF (0-Trace)
[2024-09-12 15:10] LABS: Albumin 3.5 g/dL (3.2-5.2); Albumin/Globulin Ratio 1.3 (1-3); Calcium 9.9 mg/dL (8.6-10.3); Creatinine, Serum 2.87 mg/dL (0.67-1.17); Globulin 2.7 g/dL (2-4); Magnesium 1.8 mg/dL (1.9-2.7); Potassium 3.5 mmol/L (3.5-5.0); Total Bilirubin 0.4 mg/dL (0.2-1.0); Total Protein 6.2 g/dL (6.4-8.9)
[2024-09-12 15:25] LABS: TSH Ultra Thyroid Stim Horm 4.73 mcIU/mL (0.34-5.60)
[2024-09-12 16:22] LABS: High Sensitivity Troponin 1 Hr 7 pg/mL (<20)
[2024-09-12 17:13] LABS: C Reactive Protein 107.12 mg/L (<8.01)
[2024-09-12] MEDS: Potassium Chlor 20 meq TAB.ER PO ONE (18:09)
[2024-09-12] MEDS: Magnesium Sulfate 2 gm BAG 2 GM/50 ML BAG IVPB ONE (18:10)
[2024-09-12] MEDS: Nitroglycerin 0.4 mg/hr PATCH (10 mg) TRANSDERM ONE (18:12)
[2024-09-12] MEDS: Furosemide 40 mg/4 ml IV VIAL IV SLOW PU ONE (18:14)
[2024-09-12] MEDS ORDERED: Albuterol HFA INHALER 8 gm MDI INH PRN (18:33)
[2024-09-12] MEDS ORDERED: Albuterol/Ipratropium NEB.SOL (2.5/0.5 MG) 3 ML NEB.SOLN INH PRN (18:34)
[2024-09-12] MEDS: Meropenem 1 GM PREMIX(*) 1 GM/50 ML BAG IV SCH (21:33)
[2024-09-12] MEDS: Lactated Ringers 1000 ml BAG 1,000 ML IV SCH (22:36)
[2024-09-12] MEDS ORDERED: Dextrose 50% Syringe 50 ml 25 GM/50 ML SYRINGE IV PUSH PRN ×2 (22:49→22:52)
[2024-09-13 06:38] LABS: ABS Eosinophils 0.1 10^3/uL (0.0-0.5); ABS Lymphocytes 0.4 10^3/uL (1.0-4.8); ABS Monocytes 0.3 10^3/uL (0.0-1.1); ABS Neutrophils 3.8 10^3/uL (1.5-7.6); ABS Nucleated RBC 0.01 10^3/ul; Eosinophil % 1.1 %; Hematocrit 22.5 % (38-53); Hemoglobin 7.5 g/dL (13.2-16.3); Lymphocyte % 8.1 %; Mean Corpuscular Hemoglobin 27.1 pg (27-33); Mean Corpuscular Hgb Conc 33.2 g/dL (31-36); Mean Corpuscular Volume 81.4 fL (80-97); Mean Platelet Volume 7.6 fL (7.5-11.2); Nucleated Red Blood Cells % 0.1 %/100WBC (0.0-0.8); Platelet Count 186 10^3/uL (150-450); Red Blood Count 2.76 10^6/uL (4.06-5.63); Red Cell Distribution Width 18.1 % (12-17); White Blood Count 4.6 10^3/uL (3.6-10.2)
[2024-09-13 08:31] LABS: Calcium 9.3 mg/dL (8.6-10.3); Creatinine, Serum 2.65 mg/dL (0.67-1.17); Magnesium 1.8 mg/dL (1.9-2.7); Potassium 3.7 mmol/L (3.5-5.0); eGFR CKD-EPI 24.2 (>60)
[2024-09-13] MEDS ORDERED: Insulin GLARGINE 100 un/ml 10 ml VIAL SUBCUT SCH (09:00)
[2024-09-13] MEDS: Magnesium Sulfate 2 gm BAG 2 GM/50 ML BAG IVPB ONE (09:02)
[2024-09-13] MEDS: Insulin GLARGINE 100 un/ml 10 ml VIAL SUBCUT SCH (09:05)
[2024-09-13] MEDS: Potassium EFFERVES 25 meq TAB PO ONE (09:07)
[2024-09-13] MEDS: Amiodarone 400 mg TAB PO SCH (09:08)
[2024-09-13] MEDS: Fluticasone NASAL SPRAY 50MCG 16 gm SPRAY BTL INTRANASAL SCH (09:08)
[2024-09-13] MEDS: CMCS:Febuxostat 40 mg TAB (NF) PO SCH (09:09)
[2024-09-13] MEDS: Tiotropium Brom/Olodaterol MDI (ACUTE) INH SCH (10:01)
[2024-09-13] MEDS: Ferric Gluconate IV 250 MG in NS 0.9% 250 ml 200 ML IVPB SCH (13:22)
[2024-09-14 06:25] LABS: Calcium 9.9 mg/dL (8.6-10.3); Creatinine, Serum 2.48 mg/dL (0.67-1.17); Potassium 3.7 mmol/L (3.5-5.0); eGFR CKD-EPI 26.2 (>60)
[2024-09-14 07:02] LABS: ABS Eosinophils 0.1 10^3/uL (0.0-0.5); ABS Lymphocytes 0.4 10^3/uL (1.0-4.8); ABS Monocytes 0.4 10^3/uL (0.0-1.1); ABS Neutrophils 3.9 10^3/uL (1.5-7.6); ABS Nucleated RBC 0.01 10^3/ul; Eosinophil % 1.3 %; Hematocrit 23.3 % (38-53); Hemoglobin 7.9 g/dL (13.2-16.3); Lymphocyte % 8.7 %; Mean Corpuscular Hemoglobin 27.7 pg (27-33); Mean Corpuscular Volume 81.5 fL (80-97); Mean Platelet Volume 7.9 fL (7.5-11.2); Nucleated Red Blood Cells % 0.2 %/100WBC (0.0-0.8); Platelet Count 192 10^3/uL (150-450); Red Blood Count 2.86 10^6/uL (4.06-5.63); Red Cell Distribution Width 18.6 % (12-17); White Blood Count 4.7 10^3/uL (3.6-10.2)
[2024-09-14] MEDS: KCL 10 MEQ/50 ML IVPREMIX 10 MEQ/50 ML BAG IV SCH (08:26)
[2024-09-14] MEDS: Ammonium Lactate 12% 1 APPLIC TUBE TOPICAL SCH (16:15)
[2024-09-14 18:47] LABS: PSA Screen Ultra Sensitive 0.03 ng/mL (0-4.000)
[2024-09-15 06:27] LABS: ABS Eosinophils 0.1 10^3/uL (0.0-0.5); ABS Lymphocytes 0.4 10^3/uL (1.0-4.8); ABS Monocytes 0.3 10^3/uL (0.0-1.1); ABS Nucleated RBC 0.01 10^3/ul; Eosinophil % 1.7 %; Hemoglobin 7.4 g/dL (13.2-16.3); Lymphocyte % 10.7 %; Mean Corpuscular Hemoglobin 27.6 pg (27-33); Mean Corpuscular Hgb Conc 33.5 g/dL (31-36); Mean Corpuscular Volume 82.4 fL (80-97); Mean Platelet Volume 7.7 fL (7.5-11.2); Nucleated Red Blood Cells % 0.2 %/100WBC (0.0-0.8); Platelet Count 196 10^3/uL (150-450); Red Blood Count 2.67 10^6/uL (4.06-5.63); Red Cell Distribution Width 18.5 % (12-17); White Blood Count 3.9 10^3/uL (3.6-10.2)
[2024-09-15 06:39] LABS: Calcium 9.5 mg/dL (8.6-10.3); Creatinine, Serum 2.5 mg/dL (0.67-1.17); Magnesium 1.8 mg/dL (1.9-2.7); Potassium 3.5 mmol/L (3.5-5.0)
[2024-09-15] MEDS: Magnesium Sulfate IV 1GM/100ML 1 GM/100 ML BAG IV ONE (07:36)
[2024-09-15 14:14] VITALS: BP 133/53
[2024-09-15] MEDS: Meropenem 1 GM PREMIX(*) 1 GM/50 ML BAG IV SCH (16:54)
== END 2024-09-15 17:50 | disposition home or self-care (01) | DRG 727 ==
LOC: ED 12:54 → EDHOLD 12:54 → SUATTDRO 16:44 → MED 18:35
PROVIDERS: ADMIT Internal Medicine; ATTEND Internal Medicine